=== PATIENT | male | born 1950 | race Caucasian/White ===

== ENCOUNTER 2016-10-16 12:43 | Inpatient (IN) | payer MEDICARE, OTHER ==
[2016-10-16] MEDS ORDERED: Aspirin Low Dose CHEW TAB* 81 MG PO ONE (13:05)
[2016-10-16] MEDS ORDERED: Albuterol/Ipratropium NEB.SOL* Albuterol 2.5 MG/Ipratropium 0.5 MG 3 ML INH ONE ×2 (13:07→14:31)
[2016-10-16 13:33] LABS: Hematocrit 50 % (42-52); Hemoglobin 16.6 g/dl (14.0-18.0); Mean Corpuscular HGB Conc 33 g/dl (31-36); Mean Corpuscular Hemoglobin 29 pg (27-31); Mean Corpuscular Volume 87 fL (80-94); Mean Platelet Volume 9 um3 (7.4-10.4); Red Blood Count 5.75 10^6/ul (4.0-5.4); Red Cell Distribution Width 14 % (10.5-15); White Blood Count 9.9 10^3/ul (3.5-10.8)
[2016-10-16 13:36] LABS: Add Diff/Slide Review? Slide Review Added; Comments Flag Yes
[2016-10-16 13:49] LABS: Albumin 4.4 g/dL (3.2-5.2); BUN/Creatinine Ratio 22.8 (8-20); Calcium 9.3 mg/dL (8.6-10.3); EGFR African American 105.5 (>60); EGFR Non-African American 82.1 (>60); Globulin 2.7 g/dL (2-4); Potassium 3.8 mmol/L (3.5-5.0); Total Bilirubin 0.5 mg/dL (0.2-1.0); Total Protein 7.1 g/dL (6.4-8.9)
--- NOTE | 2016-10-16 14:05 | RAD ---
INDICATION: Cough and shortness of breath. COMPARISON: There are no prior studies available for comparison. TECHNIQUE: Dual-energy PA and lateral views of the chest were obtained. FINDINGS: The heart is within normal limits in size. Mediastinal and hilar contours appear within normal limits. The lungs are clear. No pleural effusion is present. IMPRESSION: NO EVIDENCE FOR ACTIVE CARDIOPULMONARY DISEASE.
[2016-10-16] MEDS ORDERED: NS 0.9% 1000 ML* 1,000 ML IV ONE (14:30)
[2016-10-16] MEDS ORDERED: methylPREDNISolone 125 MG* 2 ML VIAL IV ONE (14:30)
[2016-10-16] MEDS ORDERED: Azithromycin IV(*) 500 MG in NS 0.9% 250 ML* 250 ML IVPB ONE (14:32)
[2016-10-16] MEDS ORDERED: cefTRIAXone(*) 1 GM in NS 0.9% 50 ML* 50 ML IVPB ONE (14:32)
--- NOTE | 2016-10-16 17:11 | ED ---
Amarilys Villanueva Alok, scribed for Alexandra Santana MD on 10/16/16 at 1320 . Shortness of Breath - HPI Summary HPI Summary: 66M presents to the ED with dypnea and SOB on exertion for the past few months and worsening for the past few weeks. Pt states his dyspnea and SOB have been slightly improved today compared to previous days. Pt also notes occasional chest pressure worsened by deep breaths as well as a productive cough with yellow sputum. Pt states his SOB is alleviated somewhat by sputum expulsion. Pt also notes slight abd tightness. Pt denies wheezing. Pt denies home O2 use. Pt is a former tobacco smoker 40 years ago at 1.5-2 ppd. Pt is a daily drinker though has not had ETOH for the past few months. Pt has no PCP and has not seen a doctor for the last 40 years. - History of Current Complaint Chief Complaint: EDShortnessOfBreath Time Seen by Provider: 10/16/16 12:52 Hx Obtained From: Patient Onset/Duration: Lasting Weeks, Still Present, Worse Since - last few weeks Timing: Constant Current Severity: Moderate Dyspnea At: Exertion Aggrevating Factors: Deep Breaths Associated Signs & Symptoms: Cough (Productive), Chest Pain Unrelated to Cough - Allergy/Home Medications Allergies/Adverse Reactions: Allergies Allergy/AdvReac Type Severity Reaction Status Date / Time No Known Allergies Allergy Verified 10/16/16 13:04 PMH/Surg Hx/FS Hx/Imm Hx Infectious Disease History: No Infectious Disease History: Denies: Traveled Outside the [place] in Last 30 Days - Family History Known Family History: Positive: Cardiac Disease, Other - Stroke - Social History Occupation: Employed Full-time Lives: Alone Alcohol Use: Daily Hx Substance Use: No Hx Tobacco Use: Yes Smoking Status (MU): Former Smoker Type: Cigarettes Have You Smoked in the Last Year: No Review of Systems Negative: Fever Positive: Chest Pain - "pressure" Positive: Shortness Of Breath, Cough. Negative: Other - Wheezing Positive: Abdominal Pain - "tightness" All Other Systems Reviewed And Are Negative: Yes Physical Exam Triage Information Reviewed: Yes Vital Signs On Initial Exam: Initial Vitals Temp Pulse Resp BP Pulse Ox 97.9 F 106 20 185/106 97 10/16/16 12:46 10/16/16 12:46 10/16/16 12:46 10/16/16 12:46 10/16/16 12:46 Vital Signs Reviewed: Yes Appearance: Positive: No Pain Distress, Cachectic Skin: Positive: Warm, Skin Color Reflects Adequate Perfusion, Dry Eyes: Positive: EOMI, RELL ENT: Positive: Pharynx normal, TMs normal Neck: Positive: Supple, Nontender Respiratory/Lung Sounds: Positive: Decreased Breath Sounds, Other - Lungs Clear. Tachypnic Cardiovascular: Positive: Tachycardia Abdomen Description: Positive: Nontender, Soft, Other: - No rebound. Negative: Distended, Guarding Bowel Sounds: Positive: Present Musculoskeletal: Positive: Strength/ROM Intact, Other - Pt able to move all four extremities. Negative: Edema Left, Edema Right Neurological: Positive: Sensory/Motor Intact, Alert, Oriented to Person Place, Time, CN Intact II-III Psychiatric: Positive: Affect/Mood Appropriate Diagnostics - Vital Signs Vital Signs Temp Pulse Resp BP Pulse Ox 10/16/16 12:46 97.9 F 106 20 185/106 97 - Laboratory Lab Results: Lab Results 10/16/16 10/16/16 10/16/16 Range/Units 13:30 13:30 13:30 WBC 9.9 (3.5-10.8) 10^3/ul RBC 5.75 H (4.0-5.4) 10^6/ul Hgb 16.6 (14.0-18.0) g/dl Hct 50 (42-52) % MCV 87 (80-94) fL MCH 29 (27-31) pg MCHC 33 (31-36) g/dl RDW 14 (10.5-15) % Plt Count 383 (150-450) 10^3/ul MPV 9 (7.4-10.4) um3 Neut % (Auto) 76.6 (38-83) % Lymph % (Auto) 13.1 L (25-47) % Roane % (Auto) 8.8 (1-9) % Eos % (Auto) 1.1 (0-6) % Baso % (Auto) 0.4 (0-2) % Absolute Neuts (auto) 7.6 (1.5-7.7) 10^3/ul Absolute Lymphs (auto) 1.3 (1.0-4.8) 10^3/ul Absolute Monos (auto) 0.9 H (0-0.8) 10^3/ul Absolute Eos (auto) 0.1 (0-0.6) 10^3/ul Absolute Basos (auto) 0 (0-0.2) 10^3/ul Absolute Nucleated RBC 0.01 10^3/ul Nucleated RBC % 0.1 D-Dimer, Quantitative < 200 (Less Than 230) ng/mL Sodium 139 (133-145) mmol/L Potassium 3.8 (3.5-5.0) mmol/L Chloride 102 (101-111) mmol/L Carbon Dioxide 30 (22-32) mmol/L Anion Gap 7 (2-11) mmol/L BUN 21 (6-24) mg/dL Creatinine 0.92 (0.67-1.17) mg/dL Est GFR ( Amer) 105.5 (>60) Est GFR (Non-Af Amer) 82.1 (>60) BUN/Creatinine Ratio 22.8 H (8-20) Glucose 114 H (70-100) mg/dL Lactic Acid (0.5-2.0) mmol/L Calcium 9.3 (8.6-10.3) mg/dL Total Bilirubin 0.50 (0.2-1.0) mg/dL AST 14 (13-39) U/L ALT 10 (7-52) U/L Alkaline Phosphatase 66 (34-104) U/L Troponin I 0.00 (<0.04) ng/mL B-Natriuretic Peptide ( - 100) pg/mL Total Protein 7.1 (6.4-8.9) g/dL Albumin 4.4 (3.2-5.2) g/dL Globulin 2.7 (2-4) g/dL Albumin/Globulin Ratio 1.6 (1-3) 10/16/16 10/16/16 10/16/16 Range/Units 13:30 13:30 16:34 WBC (3.5-10.8) 10^3/ul RBC (4.0-5.4) 10^6/ul Hgb (14.0-18.0) g/dl Hct (42-52) % MCV (80-94) fL MCH (27-31) pg MCHC (31-36) g/dl RDW (10.5-15) % Plt Count (150-450) 10^3/ul MPV (7.4-10.4) um3 Neut % (Auto) (38-83) % Lymph % (Auto) (25-47) % Roane % (Auto) (1-9) % Eos % (Auto) (0-6) % Baso % (Auto) (0-2) % Absolute Neuts (auto) (1.5-7.7) 10^3/ul Absolute Lymphs (auto) (1.0-4.8) 10^3/ul Absolute Monos (auto) (0-0.8) 10^3/ul Absolute Eos (auto) (0-0.6) 10^3/ul Absolute Basos (auto) (0-0.2) 10^3/ul Absolute Nucleated RBC 10^3/ul Nucleated RBC % D-Dimer, Quantitative (Less Than 230) ng/mL Sodium (133-145) mmol/L Potassium (3.5-5.0) mmol/L Chloride (101-111) mmol/L Carbon Dioxide (22-32) mmol/L Anion Gap (2-11) mmol/L BUN (6-24) mg/dL Creatinine (0.67-1.17) mg/dL Est GFR ( Amer) (>60) Est GFR (Non-Af Amer) (>60) BUN/Creatinine Ratio (8-20) Glucose (70-100) mg/dL Lactic Acid 1.3 (0.5-2.0) mmol/L Calcium (8.6-10.3) mg/dL Total Bilirubin (0.2-1.0) mg/dL AST (13-39) U/L ALT (7-52) U/L Alkaline Phosphatase (34-104) U/L Troponin I 0.00 (<0.04) ng/mL B-Natriuretic Peptide 16 ( - 100) pg/mL Total Protein (6.4-8.9) g/dL Albumin (3.2-5.2) g/dL Globulin (2-4) g/dL Albumin/Globulin Ratio (1-3) Result Diagrams: 10/16/16 13:30 10/16/16 13:30 Lab Statement: Any lab studies that have been ordered have been reviewed, and results considered in the medical decision making process. - Radiology CXR Xray Interpretation: Positive (See Comments) - IMPRESSION: NO EVIDENCE FOR ACTIVE CARDIOPULMONARY DISEASE. Radiology Interpretation Completed By: Radiologist - EKG 1308 Cardiac Rate: Tachycardia - 105 bpm EKG Rhythm: Sinus Tachycardia Re-Evaluation - Re-Evaluation First Eval Re-Evaluation Time: 14:29 Change: Improved Comment: Respiratory stress gone, speaking in full sentences. Still tachypnic and tachycardic Second Eval Re-Evaluation Time: 16:44 Change: Worse Comment: ambulated pt, respiratory distress returning, will call hospitalist for admit. Course/Dx - Course Course Of Treatment: 66 yo male who hasn't seen an md in 40 yrs with long tob hx quit 4 yrs ago along with what sounds like heavy drinking in his youth, followed by moderate drinking in his later years, with no alcohol in 8 months. He reports several months of increased sob worse over the last few days, labs and cxr and ekg essentially neg, he was much better after 2 nebs and steroids and abx, but desaturated to 79% with a hr of 125 after ambulation. The case has been discussed with Dr. Kemp and he is ready for admission - Diagnoses Provider Diagnoses: COPD exacerbation - Physician Notifications Discussed Care of Patient With: Osei Busby - Will admit pt Time Discussed With Above Provider: 16:43 Discharge - Discharge Plan Condition: Stable Disposition: ADMITTED TO [facility] Prescriptions: Albuterol HFA INHALER* [Ventolin HFA Inhaler*] 1 puff INH Q4H PRN #1 mdi PRN Reason: Wheezing Azithromyxin ZUHAIR (NF) [Z-Zuhair (Zithromax) 250 mg tabs #6] 2 tab PO .TODAY, THEN 1 DAILY #6 tab predniSONE TAB* [Deltasone TAB*] 50 mg PO Q6HR #4 tab Referrals: Non Staff,Doctor [Primary Care Provider] - The documentation as recorded by the Amarilys sarah Alok accurately reflects the service I personally performed and the decisions made by me, Alexandra Santana MD.
[2016-10-16] MEDS ORDERED: Albuterol 2.5 MG/3 ML NEB.SOL* (0.083%) INH PRN (17:19)
[2016-10-16] MEDS ORDERED: Acetaminophen TAB* 325 MG PO PRN (17:19)
[2016-10-16 18:19] LABS: TSH (Thyroid Stimulating Horm) 2.85 mcIU/mL (0.34-5.60)
[2016-10-16] MEDS: Albuterol/Ipratropium NEB.SOL* Albuterol 2.5 MG/Ipratropium 0.5 MG 3 ML INH SCH (20:14)
--- NOTE | 2016-10-16 22:26 | HP ---
HISTORY AND PHYSICAL: DATE OF ADMISSION: 10/16/16 PRIMARY CARE PHYSICIAN: The patient has no PCP. CHIEF COMPLAINT: Shortness of breath. HISTORY OF PRESENT ILLNESS: Mr. Ceja is a 66-year-old man with no diagnosed past medical history, but no contact with doctor for 40 plus years, who presented to the hospital with worsening shortness of breath. The patient states he has had shortness of breath for some years now, although feels that since the winter, symptoms have become worse and particularly worse over the past few weeks. He notes this shortness of breath is mostly associated with exertion. He states that in the winter he was able to walk around the supermarket but now has difficulty to even get across the parking lot without feeling short of breath or needing to stop for rest. The patient was a former heavy smoker, quit 4 years ago after a 60 to 80 pack year history. He reports a chronic productive cough that produces yellow sputum, feels like it may be slightly increased lately but never had any blood in the sputum. He does report orthopnea and has worsening of his symptoms at night with the need to prop his head up with a number of pillows. He also reports occasional chest pain which he states he notices mostly while lying down in bed. He states it will maybe start in the left side of the chest and radiate around to the back. He does not feel that this is worsened by exertion and in fact thinks that it may improve with exertion. He states he had not much of an appetite lately and has had some early satiety. He reports occasional chills, no nausea, vomiting, no lower extremity edema. No abdominal pain. He has had some constipation that is resolved recently. Denies any diarrhea. He was scheduled to see a PCP , but could not get an appointment until November and at the urging of his friends who were present at the bedside, came to the hospital for further evaluation. PAST MEDICAL HISTORY: None. PAST SURGICAL HISTORY: Hernia repair when he was a child. HOME MEDICATIONS: None. ALLERGIES: The patient reports no known drug allergies. FAMILY HISTORY: Significant for his father with CHF, diabetes, and CVA who at 80. Mother with CHF and COPD. A sister who at 48 of non-Hodgkin' s lymphoma, another sister who is still alive with hypertension. SOCIAL HISTORY: Patient reports smoking 1.5-2 PPD x40 years, quit 4 years ago. Used to drink heavily, reports in the past few years he has only had about 1 glass of wine a day, none in the past months. No illicit drug use. REVIEW OF SYSTEMS: A 12-point review of systems is negative except for that as noted in the HPI. PHYSICAL EXAMINATION GENERAL: The patient is a middle-aged slightly disheveled man lying in bed in no apparent distress. VITAL SIGNS: On admission, temperature 97.9, heart rate 106, respiratory rate of 20, O2 saturation 97% on room air. Blood pressure 185/106, which has since normalized to 130/80. HEENT: Head normocephalic, atraumatic. Eyes: Pupils equal, round and reactive to light and accommodation. Anicteric sclerae. ENT: Moist mucous membranes. No cervical adenopathy. LUNGS: With diminished and tight breath sounds throughout. Occasional end expiratory wheezing in the lower lobes. Poor air movement. CARDIOVASCULAR: Tachycardia. No murmurs, gallops or rubs. ABDOMEN: Soft, nontender, nondistended. Bowel sounds positive. EXTREMITIES: No cyanosis, clubbing, or edema. NEUROLOGIC: The patient is alert and oriented x3. No focal neurological deficits. SKIN: Warm, dry, and well perfused. LAB DATA/DIAGNOSTIC STUDIES: White blood cell count of 9.9, hematocrit of 50, platelets of 383. D-dimer less than 200. Sodium 139, potassium 3.8, chloride of 102, carbon dioxide of 30, BUN of 21, creatinine 0.92, glucose of 114. Lactic acid of 1.3. LFTs within normal limits. Troponin is 0.00. B- natriuretic peptide of 16. EKG personally reviewed shows sinus tachycardia with Q-waves in V1 and V2. Chest x-ray personally reviewed shows no evidence for acute cardiopulmonary disease. ASSESSMENT AND PLAN: Worsening shortness of breath particularly with exertion in a 66-year-old man with history of tobacco abuse and no formal medical contact in 40 years. 1. Dyspnea on exertion. Overall, the patient's symptoms seem to be more consistent with pulmonary etiology like chronic obstructive pulmonary disease. He sounds very tight on exam and reported some improvement in his symptoms after nebs and steroids. We will continue on round the clock DuoNeb and p.r.n. albuterol, and we will continue the patient on oral prednisone. He does report some orthopnea, which raises some concern for a possible cardiac etiology. He does have what appears to be Q-waves on his EKG in V1 and V2. He has had 1 negative troponin. We will continue to trend these and monitor the patient on telemetry. He is fairly tachycardic. I am not sure if this was from his hypoxia and ambulation along with the steroids and albuterol or for a primary cardiac reason. I will order an echocardiogram and could also consider a stress test; however, at this time, I think improving the patient's breathing is probably the most primary concern. Note there is no clear evidence of ischemia on the workup so far. Perhaps, the stress test could be delayed to a further date. 2. DVT prophylaxis. The patient is low risk, ambulate. 3. Code status. The patient is a full code. TIME SPENT: Total time spent on this admission, 45 minutes, with over half the time spent [id number] with the patient in counseling and coordinating care. [id number]/[facility] #: [id number] MTDD
[2016-10-17] MEDS: Albuterol/Ipratropium NEB.SOL* Albuterol 2.5 MG/Ipratropium 0.5 MG 3 ML INH SCH ×4 (00:59→21:29)
[2016-10-17] MEDS ORDERED: Pneumococcal Vac Polyvalent* 0.5 ML VIAL IM ONE (09:00)
[2016-10-17] MEDS: predniSONE TAB* 20 MG PO SCH (09:00)
--- NOTE | 2016-10-17 13:02 | PN ---
Subjective Date of Service: 10/17/16 Interval History: Patient seen this morning. Feels breathing may be slightly better today, has been ambulating around the unit. Says he did have some chest pain when he woke up this morning which has been ongoing for him, he wonders if it is MSK pain, it was less intense today and resolved once he began to move around. O2 sats dropped while ambulating this AM on RA. Family History: Unchanged from Admission Social History: Unchanged from Admission Past Medical History: Unchanged from Admission Objective Active Medications: Acetaminophen (Tylenol Tab*) 650 mg PO Q4H PRN PRN Reason: FEVER/PAIN Albuterol (Ventolin 2.5 Mg/3 Ml Neb.Nicol*) 2.5 mg INH [id number] AWAKE PRN PRN Reason: sob/wheezing Albuterol/Ipratropium (Duoneb (Albuterol 2.5 Mg/Ipratropium 0.5 Mg)) 1 neb INH [id number] AWAKE [facility] Last Admin: 10/17/16 07:46 Dose: 1 neb Prednisone (Deltasone Tab*) 40 mg PO DAILY WITH MEAL [facility] Last Admin: 10/17/16 09:00 Dose: 40 mg Vital Signs 10/16/16 10/16/16 10/16/16 17:00 17:30 17:31 Temperature Pulse Rate 120 113 111 Respiratory 18 20 19 Rate Blood Pressure 158/99 168/138 (mmHg) O2 Sat by Pulse 99 98 98 Oximetry 10/17/16 10/17/16 08:00 08:07 Temperature 97.4 F Pulse Rate 81 Respiratory 16 18 Rate Blood Pressure 154/72 (mmHg) O2 Sat by Pulse 91 Oximetry Oxygen Devices in Use Now: None Appearance: Middle-aged, slightly disheveled, M, laying in bed in NAD Eyes: No Scleral Icterus Ears/Nose/Mouth/Throat: Mucous Membranes Moist Neck: NL Appearance and Movements; NL JVP Respiratory: Symmetrical Chest Expansion and Respiratory Effort, - - Moderate air movement (seems better than yesterday), slight end-expiratory wheezing in bases Cardiovascular: NL Sounds; No Murmurs; No JVD, RRR Abdominal: NL Sounds; No Tenderness; No Distention Lymphatic: No Cervical Adenopathy Extremities: No Edema Skin: No Rash or Ulcers Neurological: Alert and Oriented x 3 Result Diagrams: 10/16/16 13:30 10/16/16 13:30 Assess/Plan/Problems-Billing Assessment: Dyspnea on exertion in a 66 yo M with hx of tobacco abuse, little medical contact - Patient Problems (1) Dyspnea on exertion Current Visit: Yes Comment: At this point seems more of a pulmonary etiology, continue to treat as COPD exacerbation with nebs/steroids. Will order inhalers so patient can begin using them in the hospital with supervision. Will likely need O2 on discharge. Should get outpatient PFTs. Troponins remained negative and tachycardia resolved. Awaiting echo. I think we can hold on stress at this point unless echo is concerning. (2) DVT prophylaxis Current Visit: Yes Comment: Low risk, ambulate Status and Disposition: Inpatient for hypoxia, likely COPD, cardiac evaluation
[2016-10-17] MEDS ORDERED: Spiriva Inhaler DEVICE* 1 EACH DEVICE INH ONE (14:00)
[2016-10-17] MEDS: Tiotropium CAP.INH* CAP.INH/18 MCG INH SCH (17:15)
[2016-10-17] MEDS: Mometasone/Formoter 200/5 MDI INH SCH (21:33)
[2016-10-18] MEDS: Albuterol/Ipratropium NEB.SOL* Albuterol 2.5 MG/Ipratropium 0.5 MG 3 ML INH SCH ×2 (00:47→08:02)
[2016-10-18] MEDS: Mometasone/Formoter 200/5 MDI INH SCH (08:03)
[2016-10-18] MEDS: Tiotropium CAP.INH* CAP.INH/18 MCG INH SCH (08:03)
[2016-10-18] MEDS: predniSONE TAB* 20 MG PO SCH (08:58)
--- NOTE | 2016-10-18 11:08 | ECHO ---
Patient: LISET MUKHERJEE [facility] Rec#: [id number] : 1950 Date: 10/18/2016 Age: 66y Height: 170.18 cm / 67.0 in Weight: 56.7 kg / 125.0 lbs Sex: M BSA: 1.66 Room#: 440 Admit Date#: 10/16/2016 Type: Inpatient Referring: DARRION PAPPAS MD Reading: Chayo Faust MD Winter [employer] Manager: Klaudia IsabelRDCS,RDMS Transthoracic Echocardiogram Indication: SOB BP: 123/88 HR: 99 Rhythm: NSR Findings History: Smoker, ETOH, dyspnea Technical Comments: The study quality is fair. Completed 1035 Left Ventricle: The left ventricular chamber size is decreased. Mild concentric left ventricular hypertrophy is observed. The estimated ejection fraction is 55-60%. Abnormal left ventricular diastolic filling is observed, consistent with impaired relaxation. Left Atrium: The left atrial chamber size is normal. Right Ventricle: The right ventricular chamber size and systolic function are within normal limits. Right Atrium: The right atrial cavity size is normal. Aortic Valve: The aortic valve is trileaflet. The aortic valve leaflets are mildly thickened. There is moderate thickening of the non coronary cusp. There is a trace of aortic regurgitation. There is no evidence of aortic stenosis. Mitral Valve: The mitral valve leaflets are mildly thickened. There is a trace of mitral regurgitation. There is no evidence of mitral stenosis. Tricuspid Valve: The tricuspid valve leaflets are normal. There is trace tricuspid regurgitation. There is evidence of mild pulmonary hypertension. Pulmonic Valve: The pulmonic valve structure is not well visualized. There is a trace pulmonic regurgitation. Pericardium: There is no significant pericardial effusion. Aorta: The aortic root appears normal. The aortic arch is not well visualized. Pulmonary Artery: The main pulmonary artery is not well visualized. Venous: The inferior vena cava appears normal. There is a greater than 50% respiratory change in the inferior vena cava dimension. Summary: There was not any prior study for comparison. Conclusions The left ventricular chamber size is decreased. Mild concentric left ventricular hypertrophy is observed. The estimated ejection fraction is 55-60% Abnormal left ventricular diastolic filling is observed, consistent with impaired relaxation. There is a trace of aortic regurgitation. There is a trace of mitral regurgitation. There is trace tricuspid regurgitation. There is a trace pulmonic regurgitation. Measurements Name Value Normal Range RVIDd (AP) 2D 2.7 cm (0.9 - 2.6) RAd ISD 4CH 3.8 cm (3.4 - 4.9) RA (A4C)W 3.5 cm (2.9 - 4.6) IVSd (2D) 1.1 cm (0.6 - 1) LVPWd (2D) 1.2 cm (0.6 - 1) LVIDd (2D) 3 cm (3.6 - 5.4) LVIDs (2D) 2.5 cm - LV FS (2D) 16 % (25 - 45) Aortic Annulus 2 cm (1.4 - 2.6) Ao root diameter (2D) 3 cm (2.1 - 3.5) Ascending Ao 2.8 cm (2.1 - 3.4) LA dimension (AP) 2D 2.8 cm (2.3 - 3.8) LAd ISD 4CH 3.5 cm (2.9 - 5.3) LA ISD 4CH W 3.2 cm (2.5 - 4.5) Name Value Normal Range LA ESV SP 4CH (A/L) 17.44 ml - LA ESV SP 2CH (A/L) 26.54 ml - LA ESV BP (A/L) 26.06 ml - LA ESV BP (A/L) index 16 ml/m2 - LA ESV SP 4CH (MOD) 15.33 ml - LA ESV SP 2CH (MOD) 23.64 ml - Name Value Normal Range MV E-wave Vmax 0.6 m/sec - MV deceleration time 156 msec - MV A-wave Vmax 0.8 m/sec - MV E:A ratio 0.8 ratio - P. vein S-wave Vmax 0.7 m/sec - P. vein D-wave Vmax 0.4 m/sec - P. vein S:D Vmax ratio 1.88 ratio - P. vein A-wave duration 100.3 msec - LV septal e' Vmax 0.06 m/sec - LV lateral e' Vmax 0.1 m/sec - LV E:e' septal ratio 10 ratio - LV E:e' lateral ratio 6 ratio - Name Value Normal Range AV Vmax 1.3 m/sec - AV VTI 19.6 cm - AV peak gradient 7 mmHg - AV mean gradient 3.4 mmHg - LVOT Vmax 1 m/sec - LVOT VTI 18.3 cm - LVOT peak gradient 4 mmHg - LVOT mean gradient 2.1 mmHg - Name Value Normal Range TR Vmax 2.9 m/sec - TR peak gradient 34 mmHg - RAP 3 mmHg - RVSP 37 mmHg - IVC diameter 1.8 cm - Name Value Normal Range PV Vmax 0.8 m/sec - PV peak gradient 2.4 mmHg -
[2016-10-18 12:21] VITALS: BP 150/91
--- NOTE | 2016-10-18 12:49 | DCNOTE ---
Patient seen this morning. Reports he continues to feel some improvement in his breathing. Reports noticeable difference when he ambulates with O2. Was documented as having hypoxia with ambualting. On exam, RRR, s1 and s2 present, no m/g/r, lungs still somewhat tight with moderate air movement, no wheezing noted, no LE edema Echo shows good EF with no major abnormalities. Will plan to discharge the patient home with Spiriva, Symbicort and prn albuterol along with a few more days of steroids. Patient will be sent home with O2 for activity. Will need PCP follow-up and consideration of outpatient stress test once breathing issues have stabilized.
--- NOTE | 2016-10-19 04:43 | DS ---
DISCHARGE SUMMARY: DATE OF ADMISSION: 10/16/16 DATE OF DISCHARGE: 10/18/16 PRINCIPAL DISCHARGE DIAGNOSES: 1. Likely underlying chronic obstructive pulmonary disease with exacerbation. 2. Dyspnea on exertion. 3. Hypoxia with exertion. DISCHARGE MEDICATION REGIMEN: 1. Spiriva 1 capsule inhaled daily. 2. Symbicort 2 puffs inhaled 2 times daily. 3. Albuterol inhaler 1 puff inhaled every 4 hours as needed for shortness of breath or wheezing. 4. Prednisone 40 mg by mouth daily x2 days. STUDIES DONE DURING HOSPITALIZATION: 1. Chest x-ray. Impression: No evidence for active cardiopulmonary disease. Transthoracic echocardiogram. Conclusion: Left ventricular chamber size is decreased. Mild concentric LVH. EF of 55% to 60%. Abnormal left ventricular diastolic filling is observed consistent with impaired relaxation. There is trace aortic regurgitation, trace mitral regurgitation, trace tricuspid regurgitation, and trace pulmonic regurgitation. HISTORY OF PRESENT ILLNESS AND HOSPITAL SUMMARY: Please see my full history and physical for full details. Briefly, Mr. Ceja is a 66-year-old man with a history of tobacco abuse and no medical contact for over 40 years who presents to the hospital with long-term shortness of breath that seems to have progressed over the past few weeks. He reports occasional chest pain as well although it seems like this is mostly when he is lying down. It seems to resolve with exertion. The patient has a heavy smoking history, but quit 4 years ago. In the emergency department, the patient had an unremarkable chest x -ray and negative D-dimer and a normal B- natriuretic peptide. His troponins were trended, which remained negative. He had an EKG, which did show some Q- waves. However, he was monitored on telemetry with no events. He underwent an echocardiogram as above that showed relatively preserved EF, maybe some signs of diastolic dysfunction. Overall, it was felt that the patient's symptoms were likely due to COPD that was undiagnosed. The patient was started on nebulizers and steroids while in the hospital and was transitioned to inhalers on discharge. He will get a few additional days of prednisone. The patient needs PCP followup and would benefit from outpatient PFTs as well as likely a cardiac stress test once his breathing issues have resolved. The patient was encouraged to keep his upcoming PCP appointment and our office will try to see if we can get him in sooner than his scheduled appointment in November. TIME SPENT: Total time spent on this discharge, 35 minutes. This is a summary of the hospitalization, please see the full medical record for further details. [id number]/[facility] #: [id number] MTDD
== END 2016-10-18 14:10 | disposition home or self-care (01) | DRG 192 ==
LOC: ED 12:43 → MEDTELE 16:54
PROVIDERS: ADMIT Hospitalist; ATTEND Hospitalist
DX: J44.1 Chronic obstructive pulmonary disease with (acute) exacerbation (principal); R06.00 Dyspnea, unspecified; R09.02 Hypoxemia; Z87.891 Personal history of nicotine dependence; Z83.3 Family history of diabetes mellitus; Z82.3 Family history of stroke; Z82.5 Family history of asthma and other chronic lower respiratory diseases; Z80.7 Family history of other malignant neoplasms of lymphoid, hematopoietic and related tissues; Z82.49 Family history of ischemic heart disease and other diseases of the circulatory system
CPT/HCPCS: 36415; 71020; 80053; 83605; 83880; 84443; 84484; 85025; 85379; 87040; 90732; 93005; 93306; 94640; 94760; A9270-GY; J0456; J0696; J2930; J7512

== ENCOUNTER 2016-11-19 17:55 | Inpatient (IN) | payer MEDICARE, OTHER ==
[2016-11-19] MEDS ORDERED: NS 0.9% 1000 ML* 1,000 ML IV ONE (19:57)
[2016-11-19] MEDS ORDERED: Morphine INJ* 2 MG/ML 1 ML SYRINGE IV ONE (19:57)
[2016-11-19] MEDS ORDERED: methylPREDNISolone 125 MG* 2 ML VIAL IV ONE (19:57)
[2016-11-19] MEDS ORDERED: Albuterol/Ipratropium NEB.SOL* Albuterol 2.5 MG/Ipratropium 0.5 MG 3 ML INH ONE ×2 (19:57→21:37)
[2016-11-19 20:39] LABS: Hematocrit 47 % (42-52); Hemoglobin 15.1 g/dl (14.0-18.0); Mean Corpuscular HGB Conc 32 g/dl (31-36); Mean Corpuscular Hemoglobin 29 pg (27-31); Mean Corpuscular Volume 90 fL (80-94); Mean Platelet Volume 8 um3 (7.4-10.4); Red Blood Count 5.21 10^6/ul (4.0-5.4); Red Cell Distribution Width 14 % (10.5-15); White Blood Count 14.2 10^3/ul (3.5-10.8)
[2016-11-19 20:54] LABS: Albumin 4.3 g/dL (3.2-5.2); BUN/Creatinine Ratio 18.9 (8-20); Calcium 9.3 mg/dL (8.6-10.3); EGFR African American 101.7 (>60); EGFR Non-African American 79.1 (>60); Globulin 2.4 g/dL (2-4); Potassium 4.1 mmol/L (3.5-5.0); Total Bilirubin 0.7 mg/dL (0.2-1.0); Total Protein 6.7 g/dL (6.4-8.9)
--- NOTE | 2016-11-19 21:23 | ED ---
Fanny Villanueva Rebecca, scribed for Gael Garcia MD on 11/19/16 at 1959 . Respiratory - HPI Summary HPI Summary: Pt is a 66 y/o M who presents to ED c/o acute on chronic SOB. SOB is characterized as dyspnea at rest and worsened yesterday. Sx aggravated and alleviated by nothing. Additionally c/o productive cough with small amounts of sputum, chest "spasms" and lumbar back pain. Spasms and back pain have been present for the last month with treatment of Tylenol without much relief. Denies fever. Dx of COPD 1 month ago. Uses 3L O2 per Os while being active, no O2 while at rest. - History of Current Complaint Chief Complaint: EDRespiratoryDistress Stated Complaint: DIFFICULTY BREATHING/CHEST PAIN Time Seen by Provider: 11/19/16 19:50 Hx Obtained From: Patient Onset/Duration: Still Present, Worse Since - 2 days ago Timing: Constant Pain Intensity: 6 Sputum Amount: Small Aggravating Factor(s): Nothing Alleviating Factor(s): Nothing Associated Signs and Symptoms: SOB, Chest Pain - "spasms" - Allergy/Home Medications Allergies/Adverse Reactions: Allergies Allergy/AdvReac Type Severity Reaction Status Date / Time No Known Allergies Allergy Verified 10/16/16 13:04 Home Medications: Home Medications Budesonide/Formote 160/4.5(NF) [Symbicort 160/4.5 (NF)] 2 puff INH BID 11/20/16 [History Confirmed 11/20/16] PMH/Surg Hx/FS Hx/Imm Hx Respiratory History: Reports: Hx Chronic Obstructive Pulmonary Disease (COPD) Sensory History: Reports: Hx Contacts or Glasses Denies: Hx Hearing Aid Opthamlomology History: Reports: Hx Contacts or Glasses - Surgical History Surgery Procedure, Year, and Place: inguinal hernia as a kid Infectious Disease History: No Infectious Disease History: Denies: Traveled Outside the [place] in Last 30 Days - Family History Known Family History: Positive: Cardiac Disease, Other - Stroke - Social History Alcohol Use: Weekly Alcohol Amount: stopped recently because he is not eating well Hx Substance Use: No Substance Use Type: Reports: None Hx Tobacco Use: Yes Smoking Status (MU): Former Smoker Type: Cigarettes Have You Smoked in the Last Year: No Review of Systems Negative: Fever Positive: Chest Pain - chest "spasms" Positive: Shortness Of Breath, Cough - productive Positive: Arthralgia - Lumbar back pain All Other Systems Reviewed And Are Negative: Yes Physical Exam Triage Information Reviewed: Yes Vital Signs On Initial Exam: Initial Vitals Temp Pulse Resp BP Pulse Ox 98.4 F 119 30 154/95 93 11/19/16 18:03 11/19/16 18:03 11/19/16 18:03 11/19/16 18:03 11/19/16 18:03 Vital Signs Reviewed: Yes Appearance: Positive: No Pain Distress - moderate sob, Thin, Cachectic Skin: Positive: Warm Head/Face: Positive: Normal Head/Face Inspection Eyes: Positive: RELL ENT: Positive: Hearing grossly normal Neck: Positive: Supple Respiratory/Lung Sounds: Positive: Decreased Breath Sounds, Wheezes - diffuse bilat exp whhezes Cardiovascular: Positive: Tachycardia Abdomen Description: Positive: Nontender, Soft Bowel Sounds: Positive: Present Musculoskeletal: Positive: Strength/ROM Intact Neurological: Positive: Alert, Oriented to Person Place, Time Psychiatric: Positive: Affect/Mood Appropriate Diagnostics - Vital Signs Vital Signs Temp Pulse Resp BP Pulse Ox 11/19/16 18:47 98.0 F 109 22 150/97 100 11/19/16 18:03 98.4 F 119 30 154/95 93 - Laboratory Lab Results: Lab Results 11/19/16 11/19/16 11/19/16 Range/Units 20:29 20:29 20:29 WBC 14.2 H (3.5-10.8) 10^3/ul RBC 5.21 (4.0-5.4) 10^6/ul Hgb 15.1 (14.0-18.0) g/dl Hct 47 (42-52) % MCV 90 (80-94) fL MCH 29 (27-31) pg MCHC 32 (31-36) g/dl RDW 14 (10.5-15) % Plt Count 447 (150-450) 10^3/ul MPV 8 (7.4-10.4) um3 Neut % (Auto) 81.6 (38-83) % Lymph % (Auto) 10.2 L (25-47) % Lares % (Auto) 7.4 (1-9) % Eos % (Auto) 0.4 (0-6) % Baso % (Auto) 0.4 (0-2) % Absolute Neuts (auto) 11.6 H (1.5-7.7) 10^3/ul Absolute Lymphs (auto) 1.4 (1.0-4.8) 10^3/ul Absolute Monos (auto) 1.0 H (0-0.8) 10^3/ul Absolute Eos (auto) 0.1 (0-0.6) 10^3/ul Absolute Basos (auto) 0.1 (0-0.2) 10^3/ul Absolute Nucleated RBC 0.01 10^3/ul Nucleated RBC % 0.1 INR (Anticoag Therapy) 0.92 (0.89-1.11) D-Dimer, Quantitative < 200 (Less Than 230) ng/mL Sodium 139 (133-145) mmol/L Potassium 4.1 (3.5-5.0) mmol/L Chloride 103 (101-111) mmol/L Carbon Dioxide 29 (22-32) mmol/L Anion Gap 7 (2-11) mmol/L BUN 18 (6-24) mg/dL Creatinine 0.95 (0.67-1.17) mg/dL Est GFR ( Amer) 101.7 (>60) Est GFR (Non-Af Amer) 79.1 (>60) BUN/Creatinine Ratio 18.9 (8-20) Glucose 104 H (70-100) mg/dL Lactic Acid (0.5-2.0) mmol/L Calcium 9.3 (8.6-10.3) mg/dL Total Bilirubin 0.70 (0.2-1.0) mg/dL AST 15 (13-39) U/L ALT 12 (7-52) U/L Alkaline Phosphatase 48 (34-104) U/L Total Protein 6.7 (6.4-8.9) g/dL Albumin 4.3 (3.2-5.2) g/dL Globulin 2.4 (2-4) g/dL Albumin/Globulin Ratio 1.8 (1-3) /10/31 Range/Units 20:29 WBC (3.5-10.8) 10^3/ul RBC (4.0-5.4) 10^6/ul Hgb (14.0-18.0) g/dl Hct (42-52) % MCV (80-94) fL MCH (27-31) pg MCHC (31-36) g/dl RDW (10.5-15) % Plt Count (150-450) 10^3/ul MPV (7.4-10.4) um3 Neut % (Auto) (38-83) % Lymph % (Auto) (25-47) % Lares % (Auto) (1-9) % Eos % (Auto) (0-6) % Baso % (Auto) (0-2) % Absolute Neuts (auto) (1.5-7.7) 10^3/ul Absolute Lymphs (auto) (1.0-4.8) 10^3/ul Absolute Monos (auto) (0-0.8) 10^3/ul Absolute Eos (auto) (0-0.6) 10^3/ul Absolute Basos (auto) (0-0.2) 10^3/ul Absolute Nucleated RBC 10^3/ul Nucleated RBC % INR (Anticoag Therapy) (0.89-1.11) D-Dimer, Quantitative (Less Than 230) ng/mL Sodium (133-145) mmol/L Potassium (3.5-5.0) mmol/L Chloride (101-111) mmol/L Carbon Dioxide (22-32) mmol/L Anion Gap (2-11) mmol/L BUN (6-24) mg/dL Creatinine (0.67-1.17) mg/dL Est GFR ( Amer) (>60) Est GFR (Non-Af Amer) (>60) BUN/Creatinine Ratio (8-20) Glucose (70-100) mg/dL Lactic Acid 0.8 (0.5-2.0) mmol/L Calcium (8.6-10.3) mg/dL Total Bilirubin (0.2-1.0) mg/dL AST (13-39) U/L ALT (7-52) U/L Alkaline Phosphatase (34-104) U/L Total Protein (6.4-8.9) g/dL Albumin (3.2-5.2) g/dL Globulin (2-4) g/dL Albumin/Globulin Ratio (1-3) Result Diagrams: 11/19/16 20:29 11/19/16 20:29 Lab Statement: Any lab studies that have been ordered have been reviewed, and results considered in the medical decision making process. - Radiology CXR Xray Interpretation: No Acute Changes - Hyperinflated lung ruiz without evidence of active cardiopulmonary disease. Radiology Interpretation Completed By: Radiologist - EKG 1815 Cardiac Rate: Tachycardia - 105 bpm EKG Rhythm: Sinus Tachycardia EKG Interpretation: No STEMI Re-Evaluation - Re-Evaluation First Eval Change: Improved - improved at rest, desats with minimal exertion, will admit , d/w hospitalist Disposition - Course Assessment/Plan: Pt is a 66 y/o M who presents to ED c/o acute on chronic SOB, worsened yesterday. Additionally c/o productive cough with small amounts of sputum, chest "spasms" and lumbar back pain. Spasms and back pain have been present for the last month with treatment of Tylenol without much relief. Denies fever. Dx of COPD 1 month ago. Uses 3L O2 per Os while being active, no O2 while at rest. CXR reveals hyperinflated lung ruiz with no active cardiopulmonary disease. Discussed care of pt with Dr. Doll who accepts pt for admission. Pt will be admitted to hospitalist services with Dx of COPD. He understands and agrees. - Diagnoses Provider Diagnoses: COPD (chronic obstructive pulmonary disease) - Physician Notifications Discussed Care Of Patient With: Fadi Doll Time Discussed With Above Provider: 22:40 Instructed by Provider To: Admit As Inpatient - Accepts pt for admission - Critical Care Time Critical Care Time: 30-74 min Discharge - Discharge Plan Condition: Fair Disposition: ADMITTED TO [facility] The documentation as recorded by the Fanny sarah Rebecca accurately reflects the service I personally performed and the decisions made by , Gael Garcia MD.
--- NOTE | 2016-11-19 21:33 | RAD ---
Indication: Shortness of breath. 2 views of the chest including dual energy PA views demonstrates hyperinflated lung ruiz. No pleural fluid, pneumonia or pneumothorax is noted. No changes noted since October 16, 2016. IMPRESSION: Hyperinflated lung ruiz without evidence of active cardiopulmonary disease.
[2016-11-19] MEDS ORDERED: Albuterol 2.5 MG/3 ML NEB.SOL* (0.083%) INH PRN (23:05)
[2016-11-19] MEDS ORDERED: Ondansetron INJ* 2 MG/ML VIAL IV PRN (23:06)
--- NOTE | 2016-11-20 00:09 | HP ---
H&P (Free Text) History and Physical: PCP: RODNEY Nino Date/Time of Evaluation: 11/19/2016 2330 CC: SOB HPI: Mr Ceja (pronounced Serb) is a 66YO male HX COPD diagnosed on recent admission to [facility] 10/16-10/18/2016 for same. He is on 3L NC oxygen with activity. Starting last evening he began to have increasing SOB which worsened throughout the day until he decided to present for evaluation. He denies chest pain, cough, congestion, palpitations, N/V, F/C, or other issues. He has been taking his meds as prescribed. PMedHx COPD 3L NC oxygen w/ activity chronic mid back and chest pain chronic L LBP Ambulatory Orders Nursing to reconcile. Albuterol HFA INHALER* [Ventolin HFA Inhaler*] 1 puff INH Q4H PRN #1 mdi Mometasone/Formoter 200/5 MDI* [Dulera 200/5 MDI*] 2 puff INH BID #1 ea Tiotropium CAP.INH* [Spiriva CAP.INH*] 1 cap INH DAILY #30 cap.inh 10/18/16 predniSONE TAB* [Deltasone TAB*] 40 mg PO DAILY WITH MEAL #4 tab 10/18/16 Allergies No Known Allergies Allergy (Verified 10/16/16 13:04) PSurgHx hernia repair SocHx: former smoker quit ~4years ago w/ >60PYHX, former heavy drinker down to 1 alcoholic drink daily, denies recreational drugs; single; FamHx: Mother: , CHF, COPD; Father: , CHF, DM2, CVA; Sister 1: passed in her 40s of non-Hodgkin's lymphoma; Sister 2: HTN ROS: as above, otherwise reviewed and all were negative Constitutional: NAD, normally developed, thin white male vitals: Vital Signs Temp 36.7 C 11/19/16 18:47 Pulse 127 11/19/16 22:00 Resp 22 11/19/16 22:00 BP 179/103 11/19/16 22:00 Pulse Ox 96 11/19/16 22:00 Intake & Output 11/18/16 11/19/16 11/19/16 23:59 11:59 23:59 Weight 52.617 kg HEENM: atraumatic; sclera/conjunctiva: non-icteric/mildly injected OU; hearing: clinically intact; oropharynx: clear, mucosa moist Neck: soft tissue: non-tender; thyroid: normal Pulmonary: diminished breath sounds B with mid- to end-expiratory wheeze and prolonged expiratory phase, poor aeration, no accessory muscle use CV: TR/RR, normal S1S2, no carotid bruit, no jugular venous distention, 2+ B DP/ PT, no edema Abdominal: soft, non-distended, non-tender, no rebound/guarding/rigidity, normoactive bowel sounds, no hepatosplenomegaly or masses, no costovertebral angle tenderness Musculoskeletal: general: grossly intact; gait: stable Integumental: normal appearance and texture of exposed skin Psychiatric orientation: AA&O to PPS affect: calm mood: cooperative eye contact: good content: reliable responses: timely insight: good Testing: Lab Results 11/19/16 11/19/16 11/19/16 Range/Units 20:29 20:29 20:29 WBC 14.2 H (3.5-10.8) 10^3/ul RBC 5.21 (4.0-5.4) 10^6/ul Hgb 15.1 (14.0-18.0) g/dl Hct 47 (42-52) % MCV 90 (80-94) fL MCH 29 (27-31) pg MCHC 32 (31-36) g/dl RDW 14 (10.5-15) % Plt Count 447 (150-450) 10^3/ul MPV 8 (7.4-10.4) um3 Neut % (Auto) 81.6 (38-83) % Lymph % (Auto) 10.2 L (25-47) % Blaine % (Auto) 7.4 (1-9) % Eos % (Auto) 0.4 (0-6) % Baso % (Auto) 0.4 (0-2) % Absolute Neuts (auto) 11.6 H (1.5-7.7) 10^3/ul Absolute Lymphs (auto) 1.4 (1.0-4.8) 10^3/ul Absolute Monos (auto) 1.0 H (0-0.8) 10^3/ul Absolute Eos (auto) 0.1 (0-0.6) 10^3/ul Absolute Basos (auto) 0.1 (0-0.2) 10^3/ul Absolute Nucleated RBC 0.01 10^3/ul Nucleated RBC % 0.1 INR (Anticoag Therapy) 0.92 (0.89-1.11) D-Dimer, Quantitative < 200 (Less Than 230) ng/mL Sodium 139 (133-145) mmol/L Potassium 4.1 (3.5-5.0) mmol/L Chloride 103 (101-111) mmol/L Carbon Dioxide 29 (22-32) mmol/L Anion Gap 7 (2-11) mmol/L BUN 18 (6-24) mg/dL Creatinine 0.95 (0.67-1.17) mg/dL Est GFR ( Amer) 101.7 (>60) Est GFR (Non-Af Amer) 79.1 (>60) BUN/Creatinine Ratio 18.9 (8-20) Glucose 104 H (70-100) mg/dL Lactic Acid (0.5-2.0) mmol/L Calcium 9.3 (8.6-10.3) mg/dL Total Bilirubin 0.70 (0.2-1.0) mg/dL AST 15 (13-39) U/L ALT 12 (7-52) U/L Alkaline Phosphatase 48 (34-104) U/L Total Protein 6.7 (6.4-8.9) g/dL Albumin 4.3 (3.2-5.2) g/dL Globulin 2.4 (2-4) g/dL Albumin/Globulin Ratio 1.8 (1-3) /10/31 Range/Units 20:29 WBC (3.5-10.8) 10^3/ul RBC (4.0-5.4) 10^6/ul Hgb (14.0-18.0) g/dl Hct (42-52) % MCV (80-94) fL MCH (27-31) pg MCHC (31-36) g/dl RDW (10.5-15) % Plt Count (150-450) 10^3/ul MPV (7.4-10.4) um3 Neut % (Auto) (38-83) % Lymph % (Auto) (25-47) % Blaine % (Auto) (1-9) % Eos % (Auto) (0-6) % Baso % (Auto) (0-2) % Absolute Neuts (auto) (1.5-7.7) 10^3/ul Absolute Lymphs (auto) (1.0-4.8) 10^3/ul Absolute Monos (auto) (0-0.8) 10^3/ul Absolute Eos (auto) (0-0.6) 10^3/ul Absolute Basos (auto) (0-0.2) 10^3/ul Absolute Nucleated RBC 10^3/ul Nucleated RBC % INR (Anticoag Therapy) (0.89-1.11) D-Dimer, Quantitative (Less Than 230) ng/mL Sodium (133-145) mmol/L Potassium (3.5-5.0) mmol/L Chloride (101-111) mmol/L Carbon Dioxide (22-32) mmol/L Anion Gap (2-11) mmol/L BUN (6-24) mg/dL Creatinine (0.67-1.17) mg/dL Est GFR ( Amer) (>60) Est GFR (Non-Af Amer) (>60) BUN/Creatinine Ratio (8-20) Glucose (70-100) mg/dL Lactic Acid 0.8 (0.5-2.0) mmol/L Calcium (8.6-10.3) mg/dL Total Bilirubin (0.2-1.0) mg/dL AST (13-39) U/L ALT (7-52) U/L Alkaline Phosphatase (34-104) U/L Total Protein (6.4-8.9) g/dL Albumin (3.2-5.2) g/dL Globulin (2-4) g/dL Albumin/Globulin Ratio (1-3) ECG, personally reviewed: sinus tachycardia rate 105, no ischemia CXR, personally reviewed: IMPRESSION: Hyperinflated lung ruiz without evidence of active cardiopulmonary disease. Impression: 66M presenting in COPD exacerbation DIAGNOSIS & PLAN Primary COPD exacerbation : albuterol nebs : mometasone/formoterol : tiotropium : IV methylprednisolone : IV levofloxacin : guaifenesin : incentive spirometry : supplemental oxygen : supportive care Secondary chronic L LBP, mid-back pain, & chest pain : pain control Admission Rational: inpatient for COPD management not anticipated to resolve adequately w/i 48h to allow for discharge DVTp: heparin SQ Code Status: out of hospital DNR/I, will have MOLST brought in tomorrow HCP:
[2016-11-20] MEDS: Albuterol 2.5 MG/3 ML NEB.SOL* (0.083%) INH SCH ×4 (00:57→19:06)
[2016-11-20] MEDS: Levofloxacin 500 MG IVPREMIX(* 500 MG/100 ML BAG IVPB SCH (02:11)
[2016-11-20] MEDS: NS 0.9% 1000 ML* 1,000 ML IV SCH ×2 (02:11→18:25)
[2016-11-20] MEDS: methylPREDNISolone SOD 40 MG* 1 ML VIAL IV SCH ×3 (04:31→20:20)
[2016-11-20] MEDS: Heparin VIAL(*) 5000 UNITS/ML VIAL (FIVE THOUSAND) SUBCUT SCH ×3 (05:27→22:23)
[2016-11-20] MEDS: Omeprazole CAP* 20 MG PO SCH (05:28)
[2016-11-20 05:48] LABS: Hematocrit 42 % (42-52); Hemoglobin 13.8 g/dl (14.0-18.0); Mean Corpuscular HGB Conc 33 g/dl (31-36); Mean Corpuscular Hemoglobin 29 pg (27-31); Mean Corpuscular Volume 90 fL (80-94); Mean Platelet Volume 8 um3 (7.4-10.4); Red Blood Count 4.68 10^6/ul (4.0-5.4); Red Cell Distribution Width 14 % (10.5-15); White Blood Count 6.9 10^3/ul (3.5-10.8)
[2016-11-20] MEDS: Mometasone/Formoter 200/5 MDI INH SCH ×2 (08:46→19:06)
[2016-11-20] MEDS: Tiotropium CAP.INH* CAP.INH/18 MCG INH SCH (08:46)
[2016-11-20] MEDS ORDERED: Spiriva Inhaler DEVICE* 1 EACH DEVICE ONE (09:00)
[2016-11-20] MEDS: guaiFENesin ER TAB 600 MG PO SCH ×2 (09:07→20:27)
[2016-11-20] MEDS: Docusate CAP* 100 MG PO SCH ×2 (09:07→20:22)
[2016-11-20] MEDS ORDERED: Iohexol 300* (CONTRAST) 10 ML SDV IV SCH (11:28)
--- NOTE | 2016-11-20 13:14 | PN ---
Subjective Date of Service: 11/20/16 Interval History: HOSPITALIST PROGRESS NOTE Patient seen and examined at bedside. He feels a little better this AM. Denies dyspnea at rest, but has not tried exertion yet. C/o back pain (upper, sometimes lower, sometimes on the sides) associated with muscle spasms started around winter time. Also thinks he has lost 10lbs over the same period of time. Family History: Unchanged from Admission Social History: Unchanged from Admission Past Medical History: Unchanged from Admission Objective Active Medications: Acetaminophen (Tylenol Tab*) 650 mg PO Q6H PRN PRN Reason: FEVER/PAIN Albuterol (Ventolin 2.5 Mg/3 Ml Neb.Nicol*) 2.5 mg INH Q2H PRN PRN Reason: SOB/WHEEZING Albuterol (Ventolin 2.5 Mg/3 Ml Neb.Nicol*) 2.5 mg INH [id number] AWAKE [facility] Last Admin: 11/20/16 07:17 Dose: 2.5 mg Docusate Sodium (Colace Cap*) 200 mg PO BID [facility] Last Admin: 11/20/16 09:07 Dose: 200 mg Guaifenesin (Mucinex*) 1,200 mg PO BID [facility] Last Admin: 11/20/16 09:07 Dose: 1,200 mg Heparin Sodium (Porcine) (Heparin Vial(*)) 5,000 units SUBCUT Q8HR [facility] Last Admin: 11/20/16 05:27 Dose: 5,000 units Levofloxacin/Dextrose (Levaquin 500 Mg Ivpremix(*)) 500 mg in 100 mls @ 100 mls /hr IVPB Q24H [facility] Last Admin: 11/20/16 02:11 Dose: 100 mls/hr Sodium Chloride (Ns 0.9% 1000 Ml*) 1,000 mls @ 75 mls/hr IV PER RATE [facility] Last Admin: 11/20/16 02:11 Dose: 75 mls/hr Iohexol (Omnipaque 300* (Contrast)) 71 ml IV ONCE [facility] Stop: 11/22/16 11:27 Methylprednisolone Sodium Succinate (Solu-Medrol 40 Mg) 40 mg IV Q8H [facility] Last Admin: 11/20/16 11:57 Dose: 40 mg Mometasone Furoate/Formoterol Fumar (Dulera 200/5 Mdi*) 2 puff INH BID [facility] Last Admin: 11/20/16 08:46 Dose: 2 puff Omeprazole (Prilosec Cap*) 20 mg PO DAILY@0600 [facility] Last Admin: 11/20/16 05:28 Dose: 20 mg Ondansetron HCl (Zofran Inj*) 4 mg IV Q6H PRN PRN Reason: NAUSEA Tiotropium Denio (Spiriva Cap.Inh*) 1 cap INH DAILY [facility] Last Admin: 11/20/16 08:46 Dose: 1 cap Vital Signs 11/20/16 11:54 Temperature 97.8 F Pulse Rate 107 Respiratory 16 Rate Blood Pressure 146/85 (mmHg) O2 Sat by Pulse 97 Oximetry Oxygen Devices in Use Now: Nasal Cannula - 3 liters Appearance: Pleasant thin elderly male sitting up in bed in NAD. Eyes: No Scleral Icterus Ears/Nose/Mouth/Throat: Mucous Membranes Moist Neck: Trachea Midline Respiratory: Symmetrical Chest Expansion and Respiratory Effort, - - BS+ bilaterally decreased with scattered wheezes on left base Cardiovascular: RRR - Normal S1 and S2 Abdominal: NL Sounds; No Tenderness; No Distention Extremities: No Edema Skin: No Rash or Ulcers Neurological: Alert and Oriented x 3, NL Muscle Strength and Tone, - - Back shows no visible deformities, no pain on percussion or palpation Lines/Tubes/Other Access: Clean, Dry and Intact Peripheral IV Nutrition: Taking PO's Result Diagrams: 11/20/16 05:27 11/19/16 20:29 Assess/Plan/Problems-Billing Assessment: Mr. Ceja is a 66yo M with PMH of COPD on home O2, chronic back pain, who presented to ED with c/o dyspnea, found to have COPD exacerbation. - Patient Problems (1) COPD exacerbation Comment: - Secondary to bronchitis. - Continue levofloxacin, steroids, and bronchodilators. - Continue supplemental O2. (2) Back pain Comment: - I'm concerned this may be associated with an occult malignancy. - He's an ex-smoker, describes losing 10lbs since winter, but has actually lost 9 lbs since admission last month. I think he has lost much more than 10 lbs since winter. - Will check CT C/A/P looking for possible malignancy. (3) DVT prophylaxis Comment: - SQ heparin.
--- NOTE | 2016-11-20 14:44 | RAD ---
INDICATION: Weight loss. Evaluate for malignancy COMPARISON: None TECHNIQUE: Axial source images were obtained from the thoracic inlet to the symphysis pubis following administration of oral and intravenous contrast. 71 mL Omnipaque 300 was utilized. Coronal and sagittal reconstructed images were acquired. CHEST FINDINGS: Neck/thyroid: The visualized neck to include the thyroid appear normal. Chest wall: There are no acute abnormalities of the bony thorax or chest wall. There is no supraclavicular, infraclavicular, or axillary lymphadenopathy. Lungs : There is hyperinflation with coarsening of the interstitium compatible with emphysema. The lung apices are most significantly affected. There are no endobronchial lesions. Cardiomediastinal structures: The heart is normal in size. There is no pericardial effusion. There is no evidence of aortic aneurysm or dissection. The pulmonary vessels appear normal. There is no mediastinal or hilar adenopathy. The esophagus appears normal. Pleura : There are no pleural-based masses or effusions. ABDOMINAL/PELVIC FINDINGS: Liver: The liver is normal in size. There is a 1.3 cm right hepatic cyst. There is no ductal dilatation. Gallbladder: There are no calcified gallstones. There is no evidence of wall thickening or pericholecystic fluid. Spleen: The spleen is normal in size. There are no masses. Pancreas: There is no evidence of pancreatic mass or ductal dilatation. Adrenal glands: There is no evidence of adrenal mass. Kidneys: The kidneys are normal in size and position. There are prompt nephrograms and there is prompt excretion bilaterally. There are no renal parenchymal masses. There is no evidence of nephrolithiasis. Adenopathy: There is no evidence of adenopathy by size criteria. Fluid collections: There are no free or localized fluid collections. Vessels:There are atherosclerotic changes of the aorta. There is no focal aneurysm. The IVC is unremarkable GI tract: There are no acute CT bowel findings. There is no obstruction. The stomach and small bowel appear normal. The lower GI tract is remarkable for scattered diverticula. The cecum, ileocecal valve, and terminal ileum appear normal. The appendix is visualized and appear normal. Pelvic organs: The prostate is enlarged Bladder: There are no bladder masses. Abdominal and pelvic soft tissues: The extraperitoneal abdominal and pelvic soft tissues appear normal.. Osseous structures: There is spondylitic change of the thoracolumbar spine with dextro scoliosis of the lumbar spine. IMPRESSION: EMPHYSEMA. NO ACUTE CT FINDINGS. NO MASS OR INFLAMMATORY CHANGES.
[2016-11-21] MEDS: Acetaminophen TAB* 325 MG PO PRN ×3 (00:17→15:40)
[2016-11-21] MEDS: Levofloxacin 500 MG IVPREMIX(* 500 MG/100 ML BAG IVPB SCH (00:52)
[2016-11-21] MEDS: Albuterol 2.5 MG/3 ML NEB.SOL* (0.083%) INH SCH ×4 (01:35→19:08)
[2016-11-21] MEDS: methylPREDNISolone SOD 40 MG* 1 ML VIAL IV SCH ×3 (05:06→19:56)
[2016-11-21] MEDS: Omeprazole CAP* 20 MG PO SCH (05:07)
[2016-11-21] MEDS: Heparin VIAL(*) 5000 UNITS/ML VIAL (FIVE THOUSAND) SUBCUT SCH ×3 (05:07→21:29)
[2016-11-21] MEDS: Tiotropium CAP.INH* CAP.INH/18 MCG INH SCH (07:18)
[2016-11-21] MEDS: Mometasone/Formoter 200/5 MDI INH SCH ×2 (07:19→19:22)
[2016-11-21] MEDS: guaiFENesin ER TAB 600 MG PO SCH ×2 (08:46→19:56)
[2016-11-21] MEDS: Docusate CAP* 100 MG PO SCH ×2 (08:46→19:53)
--- NOTE | 2016-11-21 10:58 | PN ---
Subjective Date of Service: 11/21/16 Interval History: HOSPITALIST PROGRESS NOTE Patient seen and examined at bedside. He had some dyspnea and wheezing last night and earlier today. Cough is productive now with yellow sputum. Back pain is unchanged. Family History: Unchanged from Admission Social History: Unchanged from Admission Past Medical History: Unchanged from Admission Objective Active Medications: Acetaminophen (Tylenol Tab*) 650 mg PO Q6H PRN PRN Reason: FEVER/PAIN Last Admin: 11/21/16 08:45 Dose: 650 mg Albuterol (Ventolin 2.5 Mg/3 Ml Neb.Nicol*) 2.5 mg INH Q2H PRN PRN Reason: SOB/WHEEZING Albuterol (Ventolin 2.5 Mg/3 Ml Neb.Nicol*) 2.5 mg INH RT.H2RR-[id number] AWAKE [facility] Last Admin: 11/21/16 07:18 Dose: 2.5 mg Docusate Sodium (Colace Cap*) 200 mg PO BID [facility] Last Admin: 11/21/16 08:46 Dose: 200 mg Guaifenesin (Mucinex*) 1,200 mg PO BID [facility] Last Admin: 11/21/16 08:46 Dose: 1,200 mg Heparin Sodium (Porcine) (Heparin Vial(*)) 5,000 units SUBCUT Q8HR [facility] Last Admin: 11/21/16 05:07 Dose: 5,000 units Levofloxacin/Dextrose (Levaquin 500 Mg Ivpremix(*)) 500 mg in 100 mls @ 100 mls /hr IVPB Q24H [facility] Last Admin: 11/21/16 00:52 Dose: 100 mls/hr Iohexol (Omnipaque 300* (Contrast)) 71 ml IV ONCE [facility] Stop: 11/22/16 11:27 Last Admin: 11/20/16 14:10 Dose: 71 ml Methylprednisolone Sodium Succinate (Solu-Medrol 40 Mg) 40 mg IV Q8H [facility] Last Admin: 11/21/16 05:06 Dose: 40 mg Mometasone Furoate/Formoterol Fumar (Dulera 200/5 Mdi*) 2 puff INH BID [facility] Last Admin: 11/21/16 07:19 Dose: 2 puff Omeprazole (Prilosec Cap*) 20 mg PO DAILY@0600 [facility] Last Admin: 11/21/16 05:07 Dose: 20 mg Ondansetron HCl (Zofran Inj*) 4 mg IV Q6H PRN PRN Reason: NAUSEA Tiotropium [place] (Spiriva Cap.Inh*) 1 cap INH DAILY [facility] Last Admin: 11/21/16 07:18 Dose: 1 cap Vital Signs 11/21/16 11/21/16 11/21/16 03:59 07:20 08:00 Temperature 97.7 F 97.5 F Pulse Rate 85 100 102 Respiratory 20 16 16 Rate Blood Pressure 117/72 149/80 (mmHg) O2 Sat by Pulse 94 99 97 Oximetry Oxygen Devices in Use Now: Nasal Cannula - 3 liters Appearance: Elderly thin male sitting up in bed in NAD. Eyes: No Scleral Icterus Ears/Nose/Mouth/Throat: Mucous Membranes Moist Neck: Trachea Midline Respiratory: Symmetrical Chest Expansion and Respiratory Effort, - - BS+ bilaterally decreased with faint wheezes on the right Cardiovascular: RRR - Normal S1 and S2 Abdominal: NL Sounds; No Tenderness; No Distention Extremities: No Edema Neurological: Alert and Oriented x 3, NL Muscle Strength and Tone Lines/Tubes/Other Access: Clean, Dry and Intact Peripheral IV Nutrition: Taking PO's Result Diagrams: 11/20/16 05:27 11/19/16 20:29 Assess/Plan/Problems-Billing Assessment: Mr. Ceja is a 66yo M with PMH of COPD on home O2, chronic back pain, who presented to ED with c/o dyspnea, found to have COPD exacerbation. - Patient Problems (1) COPD exacerbation Comment: - Secondary to bronchitis. - Continue levofloxacin, steroids, and bronchodilators. - Continue supplemental O2. - Encourage flutter valve use. (2) Back pain Comment: - CT C/A/P did not show acute lesions. (3) DVT prophylaxis Comment: - SQ heparin.
[2016-11-22] MEDS: Levofloxacin 500 MG IVPREMIX(* 500 MG/100 ML BAG IVPB SCH (01:14)
[2016-11-22] MEDS: Albuterol 2.5 MG/3 ML NEB.SOL* (0.083%) INH SCH ×2 (01:24→07:26)
[2016-11-22] MEDS: methylPREDNISolone SOD 40 MG* 1 ML VIAL IV SCH (04:37)
[2016-11-22] MEDS: Heparin VIAL(*) 5000 UNITS/ML VIAL (FIVE THOUSAND) SUBCUT SCH (06:14)
[2016-11-22] MEDS: Omeprazole CAP* 20 MG PO SCH (06:14)
[2016-11-22] MEDS: Tiotropium CAP.INH* CAP.INH/18 MCG INH SCH (07:27)
[2016-11-22] MEDS: Mometasone/Formoter 200/5 MDI INH SCH (07:27)
[2016-11-22] MEDS: Docusate CAP* 100 MG PO SCH (07:49)
[2016-11-22] MEDS: Acetaminophen TAB* 325 MG PO PRN (07:49)
[2016-11-22] MEDS: guaiFENesin ER TAB 600 MG PO SCH (07:51)
[2016-11-22 08:23] VITALS: BP 133/81
--- NOTE | 2016-11-22 15:44 | DS ---
CC: JG Paul DISCHARGE SUMMARY: DATE OF ADMISSION: 11/19/16 DATE OF DISCHARGE: 11/22/16 PRIMARY CARE PROVIDER: JG Paul DISCHARGE DIAGNOSIS: Chronic obstructive pulmonary disease exacerbation secondary to bronchitis. SECONDARY DIAGNOSES: 1. Chronic obstructive pulmonary disease, on home oxygen. 2. Chronic back pain. 3. Prior history of tobacco abuse. MEDICATION LIST: 1. Albuterol HFA 1 puff inhaled q.4 hours p.r.n. shortness of breath. 2. Symbicort 160/4.5 two puffs inhaled b.i.d. 3. Spiriva 1 capsule inhaled daily. New medications: 1. Cyclobenzaprine 10 mg p.o. at bedtime. 2. Guaifenesin ER 1200 mg p.o. b.i.d. 3. Levofloxacin 500 mg p.o. daily for 5 more days. 4. Omeprazole 20 mg p.o. daily. 5. Prednisone taper as follows: 40 mg p.o. daily for 3 days, 30 mg for 3 days, 20 mg for 3 days, 1 0 mg for 3 days, 5 mg for 3 days, and stop. HOSPITAL COURSE: Mr. Ceja is a 66-year-old male with a past medical history as stated above that pre sented to the emergency room on 11/19/16 with complaints of shortness of breath and cough. The micky ent was admitted under the impression of COPD exacerbation and started on levofloxacin, bronchodilat ors, and IV steroids. Chest x-ray showed hyperinflated lung ruiz, but no evidence of active cardiopulmonary disease. The patient had progressive improvement of his respiratory status. The patient complains of low back pain especially on his left side that has been going on at least s camelia last winter. As the patient has a prior history of tobacco abuse and also appears to have lost some weight, decision was made to pursue CT of the chest, abdomen, and pelvis with contrast looking for any signs of malignancy. The CT showed emphysema, but no other acute CT findings, no masses or inflammatory changes. Osseous structures were described with a spondylitic change of the thoracolum bar spine with dextroscoliosis of the lumbar spine, but no other findings were mentioned in the repo rt. The patient will receive cyclobenzaprine as a muscle relaxant that he will take at bedtime and he prefers to continue to take Tylenol [id number] like he was doing before as he is a little b it apprehensive about starting any controlled substances. The patient will need to continue his wor kup for his back pain and also to complete his usual test including colonoscopy. He states that he has already been referred to see Dr. Sexton as outpatient. He is medically stable to be discharged at this time to follow up with JG Paul, on 11/27/16. PHYSICAL EXAMINATION: Vital Signs: Temperature 97.5, heart rate 76, respiratory rate is 15, oxygen saturation 96% on 2 L nasal cannula, blood pressure is 133/81. General: The patient is a pleasant, elderly male, sitting up in bed, in no acute distress. CVS: Normal S1, S2. Regular rate and rhyt hm. Chest: Breath sounds bilaterally decreased with no added sounds. Extremities: No edema. Forest ro: He is alert, awake, oriented x3. Able to move all 4 extremities. DIET: Regular diet. ACTIVITIES: As tolerated. DISPOSITION: To home. STATUS WHILE IN THE HOSPITAL: Inpatient. Please keep in mind, this is a summarized version of this patient's hospital stay. If you need more information, please feel free to call me at [phone] or please obtain the full medical records. TIME SPENT: Approximately 50 minutes was spent to complete this discharge. [id number]/[facility] #: [id number]
== END 2016-11-22 10:20 | disposition home or self-care (01) | DRG 192 ==
LOC: ED 17:55 → MED 22:40
PROVIDERS: ADMIT Hospitalist; ATTEND Internal Medicine
DX: J44.1 Chronic obstructive pulmonary disease with (acute) exacerbation (principal); Z99.81 Dependence on supplemental oxygen; J20.9 Acute bronchitis, unspecified; J44.0 Chronic obstructive pulmonary disease with (acute) lower respiratory infection; M54.5 Low back pain; Z87.891 Personal history of nicotine dependence; Z79.52 Long term (current) use of systemic steroids; Z79.899 Other long term (current) drug therapy; Z82.49 Family history of ischemic heart disease and other diseases of the circulatory system; Z83.3 Family history of diabetes mellitus; Z82.5 Family history of asthma and other chronic lower respiratory diseases; Z80.7 Family history of other malignant neoplasms of lymphoid, hematopoietic and related tissues
CPT/HCPCS: 36415; 71020; 71260; 74177; 80053; 83605; 85025; 85379; 85610; 93005; 94640; 94668; 94760; A9270-GY; J1644; J1956; J2270; J2920; J2930; Q9967

== ENCOUNTER 2017-01-14 15:08 | Emergency (ER) | payer MEDICARE, OTHER ==
[2017-01-14] MEDS ORDERED: Dexamethasone IV* 4 MG/ML 5 ML VIAL (20 MG) IVPB ONE (16:23)
[2017-01-14] MEDS ORDERED: Lidocaine PATCH 5%* 1 PATCH TRANSDERM ONE (17:00)
--- NOTE | 2017-01-14 17:02 | ED ---
Back Pain - HPI Summary HPI Summary: Pt here w/ acute on chronic LBP. He's had this "for a while now". MRI yesterday reveals DDD in lumbar and thoracic spine. Also has scoliosis and herniated discs in lumbar spine. Denies numbness, tingling, weakness or change in bowel/ bladder habits. He's tried multiple meds. Initially had some relief with meds - started with tramadol, valium then hydrocodone then oxycodone. Took morphine ER 15mg today w/o relief. He's awaiting a pain management referral and has appt w/ Dr. Tan tomorrow. Has not tried PT yet. He is here today as he can't walk from the pain. Appetite has been decreased as a result of pain as well - thin. Denies ab pain, nausea, vomiting, flank pain, urinary frequency/urgency/ hematuria, fever, chills. He lives alone and is here today with a friend who check on him daily. - History of Current Complaint Hx Obtained From: Patient, Family/Wine Bottle Inspector - female friend and her male partner <Mali Chandler - Last Filed: 01/14/17 18:22> <Kina Angelo - Last Filed: 01/14/17 20:17> - History of Current Complaint Chief Complaint: EDBackInjuryPain Stated Complaint: BACK PAIN Time Seen by Provider: 01/14/17 15:20 - Allergies/Home Medications Allergies/Adverse Reactions: Allergies Allergy/AdvReac Type Severity Reaction Status Date / Time No Known Allergies Allergy Verified 01/04/17 14:23 PMH/Surg Hx/FS Hx/Imm Hx Previously Healthy: Yes Endocrine/Hematology History: Denies: Hx Anticoagulant Therapy, Hx Blood Disorders, Hx Diabetes, Autoimmune Disease Cardiovascular History: Denies: Hx Hypertension, Hx Pacemaker/ICD Respiratory History: Reports: Hx Chronic Obstructive Pulmonary Disease (COPD) - on History: Denies: Hx Renal Disease Musculoskeletal History: Reports: Hx Back Problems - thoracic and lubar DDD; multiple disc hernations, Hx Scoliosis Sensory History: Reports: Hx Contacts or Glasses Denies: Hx Hearing Aid Opthamlomology History: Reports: Hx Contacts or Glasses Psychiatric History: Denies: Hx Panic Disorder - Surgical History Surgery Procedure, Year, and Place: inguinal hernia as a kid Infectious Disease History: No Infectious Disease History: Denies: Traveled Outside the [place] in Last 30 Days - Family History Known Family History: Positive: Cardiac Disease, Other - Stroke - Social History Occupation: Unemployed Lives: Alone Alcohol Use: Rare Alcohol Amount: stopped recently because he is not eating well Hx Substance Use: No Substance Use Type: Reports: None Hx Tobacco Use: Yes Smoking Status (MU): Former Smoker Type: Cigarettes Have You Smoked in the Last Year: No <Mali Chandler - Last Filed: 01/14/17 18:22> Review of Systems Constitutional: Negative Negative: Fever, Chills, Fatigue Cardiovascular: Negative Negative: Chest Pain Respiratory: Negative Negative: Shortness Of Breath Gastrointestinal: Negative Negative: Abdominal Pain, Vomiting, Diarrhea, Nausea Genitourinary: Negative Musculoskeletal: Other - see HPI Skin: Negative Neurological: Negative Psychological: Normal All Other Systems Reviewed And Are Negative: Yes <Mali Chandler - Last Filed: 01/14/17 18:22> All Other Systems Reviewed And Are Negative: Yes <Kina Angelo - Last Filed: 01/14/17 20:17> Physical Exam Triage Information Reviewed: Yes Vital Signs On Initial Exam: Initial Vitals Temp Pulse Resp BP Pulse Ox 98.5 F 110 18 142/84 100 01/14/17 15:29 01/14/17 15:29 01/14/17 15:29 01/14/17 15:29 01/14/17 15:29 Vital Signs Reviewed: Yes Appearance: Positive: No Pain Distress - pt is positioned lying on Rt hip, resting on elbow w/ Rt leg folded up and over Lt thigh - reports feeling best in this position, Cachectic Skin: Positive: Warm, Dry - no erythema, no ecchymosis over affected area Eyes: Positive: EOMI, Conjunctiva Clear - anicteric sclera ENT: Positive: Hearing grossly normal Respiratory/Lung Sounds: Positive: Decreased Breath Sounds - wearing 02; distant breath sounds throughout. Negative: Rales, Rhonchi, Wheezes Cardiovascular: Positive: Normal, Pulses are Symmetrical in both Upper and Lower Extremities Abdomen Description: Positive: Nontender, Soft Bowel Sounds: Positive: Present Musculoskeletal: Negative: Pain @ - spinous pp and paraspinal mm are NTTP Neurological: Positive: Normal, Sensory/Motor Intact, Alert, Oriented to Person Place, Time, CN Intact II-III Psychiatric: Positive: Normal - concerned but calm <Mali Chandler - Last Filed: 01/14/17 18:22> Vital Signs On Initial Exam: Initial Vitals Temp Pulse Resp BP Pulse Ox 98.5 F 110 18 142/84 100 01/14/17 15:29 01/14/17 15:29 01/14/17 15:29 01/14/17 15:29 01/14/17 15:29 <Cecilia Angeloica - Last Filed: 01/14/17 20:17> Diagnostics - Vital Signs Vital Signs Temp Pulse Resp BP Pulse Ox 01/14/17 16:09 98.5 F 110 18 142/84 100 01/14/17 15:29 98.5 F 110 18 142/84 100 <Mali Chandler - Last Filed: 01/14/17 18:22> - Vital Signs Vital Signs Temp Pulse Resp BP Pulse Ox 01/14/17 18:36 100 115/68 01/14/17 18:15 16 01/14/17 16:09 98.5 F 110 18 142/84 100 01/14/17 15:29 98.5 F 110 18 142/84 100 <Kina Angelo - Last Filed: 01/14/17 20:17> Re-Evaluation - Re-Evaluation First Eval Change: Unchanged - dexamethasone, lidoderm patch Second Eval Change: Unchanged - acetaminophen 650gm PO - will try IV dilaudid to asses pain control and vital signs <Mali Chandler - Last Filed: 01/14/17 18:22> Back Pain Course/Dx - Course Course Of Treatment: Pt presents today w/ acute on chronic back pain. He specifically comes in today because he cannot walk d/t the pain. He reports no relief with narcotic pain meds nor valium which he's been trying at home (see HPI). His friend indicates he's appeared better in the past when he's had steroids for his COPD. Initiated a course of dexamethasone and lidocaine patch. As he just had an MRI on thoracic and lumbar spine and sx are no different, refrained from ordering labs and further imaging. MRI's indicate scoliosis, DDD and OA, left sided disc protrusion at L5-S1, multilevel neuroforaminal narrowing. No significant central canal stenosis. Osteopenia of sacrum. Lesions of L1, L4 with characteristics of hemangiomas. No change in bowel/bladder habits and no LE radiculopathy. He has appointment with Dr. Tan tomorrow. Pt has no change in sx w/ dexamethasone and lidoderm. Friend requested PO acetaminophen and will trial IV dilaudid (dose calculated from current meds) - if he has relief of pain, can walk and vitals are stable, consider d/c w/ PO dilaudid to carry him through until tomorrow for appointmetn with Dr. Tan. If no relief or vital signs are weak, consider admission for obseravtion and pain control. If this occurs, would recommend social work consult tomorrow morning. Signed out to Kina Angelo PA-C @ 18:31 <Mali Chandler - Last Filed: 01/14/17 18:22> - Course Assessment/Plan: Patient able to walk with aide to bathroom with minimal assistance, feels comfortable and safe returning home, will follow up with DR. tan tomorrow. Given two doses of dilaudid 2mg q6 hours for home, not to take with other pain medication. patient in agreement. <Kina Angelo - Last Filed: 01/14/17 20:17> - Diagnoses Provider Diagnoses: Acute exacerbation of chronic low back pain, DDD (degenerative disc disease), lumbar, DDD (degenerative disc disease), thoracic, Disc herniation, Scoliosis Discharge - Discharge Plan Discharge Disposition Comment: signed out to Kina Angelo PA-C <Mali Chandler - Last Filed: 01/14/17 18:22> <Kina Angelo - Last Filed: 01/14/17 20:17> - Discharge Plan Condition: Stable Disposition: HOME Patient Education Materials: Hydromorphone (By mouth), Low Back Strain (ED) Referrals: Anitha Aranda MD [Primary Care Provider] - Mike Tan MD [Medical Doctor] - Additional Instructions: - Follow up with DR. Tan tomorrow - Dilaudid 2mg every 6 hours as needed for pain- do NOT take with other pain medication other than tylenol (last dose of dilaudid in hospital 6:15PM - Return to ER with loss of bowel, bladder function, decreased ambulation, increased pain
[2017-01-14] MEDS ORDERED: Acetaminophen TAB* 325 MG PO ONE (17:19)
[2017-01-14] MEDS ORDERED: Ondansetron INJ* 2 MG/ML VIAL IV ONE (18:03)
[2017-01-14] MEDS ORDERED: HYDROmorphone* 1 MG/ML 1 ML SYR IV SLOW PU ONE (18:03)
[2017-01-14] MEDS ORDERED: HYDROmorphone* 2 MG/ML 1 ML SYR IV SLOW PU ONE (18:09)
[2017-01-14 18:36] VITALS: BP 115/68
[2017-01-14] MEDS ORDERED: HYDROmorphone TAB* 2 MG PO ONE (20:10)
[2017-01-14] MEDS ORDERED: Lidocaine Patch REMOVE* 1 NOTE MISC SCH (21:00)
--- NOTE | 2017-01-16 11:11 | ED ---
Progress - Progress Note Progress Note: 01/16/17 at 11:10 pt requesting Lidoderm patch RX 5% sent to [facility] on [address] to wear one daily x 12 hours then remove for 12 hours. Re-Evaluation - Re-Evaluation First Eval Change: Unchanged - dexamethasone, lidoderm patch Second Eval Change: Unchanged - acetaminophen 650gm PO - will try IV dilaudid to asses pain control and vital signs Course/Dx - Course Course Of Treatment: Pt presents today w/ acute on chronic back pain. He specifically comes in today because he cannot walk d/t the pain. He reports no relief with narcotic pain meds nor valium which he's been trying at home (see HPI). His friend indicates he's appeared better in the past when he's had steroids for his COPD. Initiated a course of dexamethasone and lidocaine patch. As he just had an MRI on thoracic and lumbar spine and sx are no different, refrained from ordering labs and further imaging. MRI's indicate scoliosis, DDD and OA, left sided disc protrusion at L5-S1, multilevel neuroforaminal narrowing. No significant central canal stenosis. Osteopenia of sacrum. Lesions of L1, L4 with characteristics of hemangiomas. No change in bowel/bladder habits and no LE radiculopathy. He has appointment with Dr. Tan tomorrow. Pt has no change in sx w/ dexamethasone and lidoderm. Friend requested PO acetaminophen and will trial IV dilaudid (dose calculated from current meds) - if he has relief of pain, can walk and vitals are stable, consider d/c w/ PO dilaudid to carry him through until tomorrow for appointmetn with Dr. Tan. If no relief or vital signs are weak, consider admission for obseravtion and pain control. If this occurs, would recommend social work consult tomorrow morning. Signed out to Kina Angelo PA-C @ 18:31 - Diagnoses Provider Diagnoses: Acute exacerbation of chronic low back pain, DDD (degenerative disc disease), lumbar, DDD (degenerative disc disease), thoracic, Disc herniation, Scoliosis
== END 2017-01-14 20:40 | disposition home or self-care (01) ==
LOC: ED 15:08
DX: M54.5 Low back pain (principal); M51.36 Other intervertebral disc degeneration, lumbar region; M51.24 Other intervertebral disc displacement, thoracic region; M41.9 Scoliosis, unspecified; Z87.891 Personal history of nicotine dependence; Z87.09 Personal history of other diseases of the respiratory system
CPT/HCPCS: 99283; A9270-GY; J1100; J1170; J2405

== ENCOUNTER 2017-01-17 17:00 | Emergency (ER) | payer MEDICARE, OTHER ==
[2017-01-17] MEDS ORDERED: HYDROmorphone* 1 MG/ML 1 ML SYR IV ONE (19:46)
[2017-01-17] MEDS ORDERED: Ondansetron INJ* 2 MG/ML VIAL IV ONE (19:46)
[2017-01-17] MEDS ORDERED: LORazepam INJ* 2 MG/ML 1 ML VIAL IV ONE (20:32)
[2017-01-17 23:30] VITALS: BP 117/80
--- NOTE | 2017-01-18 11:19 | ED ---
Adarsh Villanueva Nikita, scribed for Blade Cortez MD on 01/17/17 at 1918 . Back Pain - HPI Summary HPI Summary: This patient is a 66 year old M presenting to ED with a chief complaint of chronic lower back pain and spasms since last night. Pt reports it was better this morning, but started getting worse again this afternoon. Pain radiates to L flank. The patient rates the pain 10/10 in severity. Symptoms aggravated by movement. Symptoms alleviated by lying on R side and on stomach. Pt reports taking Morphine at home that does not help alleviate symptoms. Pt was in the ED on January 14 and had an MRI done at [facility] on January 07 prior to visit in ED today. PMHx of COPD. - History of Current Complaint Chief Complaint: EDBackInjuryPain Stated Complaint: BACK PAIN Time Seen by Provider: 01/17/17 19:02 Hx Obtained From: Patient Onset/Duration: Lasting Hours - Worse this afternoon, Still Present Onset/Duration: Started Hours Ago - Worse this afternoon, Still Present Timing: Intermittent - chronic and intermittent Back Pain Location: Is Discrete @ - Lower back, Radiates To - L flank Severity Initially: Severe Severity Currently: Severe Pain Intensity: 10 Pain Scale Used: 0-10 Numeric Aggravating Symptom(s): Movement Alleviating Symptom(s): Position - Lying on R side and stomach. At home Morphine does NOT alleviate symptoms. Associated Signs And Symptoms: Positive: Flank Pain - Allergies/Home Medications Allergies/Adverse Reactions: Allergies Allergy/AdvReac Type Severity Reaction Status Date / Time No Known Allergies Allergy Verified 01/04/17 14:23 PMH/Surg Hx/FS Hx/Imm Hx Endocrine/Hematology History: Denies: Hx Anticoagulant Therapy, Hx Blood Disorders, Hx Diabetes Cardiovascular History: Denies: Hx Hypertension, Hx Pacemaker/ICD Respiratory History: Reports: Hx Chronic Obstructive Pulmonary Disease (COPD) - on History: Denies: Hx Renal Disease Musculoskeletal History: Reports: Hx Back Problems - thoracic and lubar DDD; multiple disc hernations, Hx Scoliosis Sensory History: Reports: Hx Contacts or Glasses Denies: Hx Hearing Aid Opthamlomology History: Reports: Hx Contacts or Glasses Psychiatric History: Denies: Hx Panic Disorder - Surgical History Surgery Procedure, Year, and Place: inguinal hernia as a kid Infectious Disease History: No Infectious Disease History: Denies: Traveled Outside the [place] in Last 30 Days - Family History Known Family History: Positive: Cardiac Disease, Other - Stroke - Social History Alcohol Use: Rare Alcohol Amount: stopped recently because he is not eating well Hx Substance Use: No Substance Use Type: Reports: None Hx Tobacco Use: Yes Smoking Status (MU): Former Smoker Type: Cigarettes Have You Smoked in the Last Year: No Review of Systems Negative: Fever Positive: Other - Back pain radiating to L flank All Other Systems Reviewed And Are Negative: Yes Physical Exam Triage Information Reviewed: Yes Vital Signs On Initial Exam: Initial Vitals Temp Pulse Resp BP Pulse Ox 98.8 F 69 20 112/78 99 01/17/17 17:01 01/17/17 17:01 01/17/17 17:01 01/17/17 17:01 01/17/17 17:01 Vital Signs Reviewed: Yes Appearance: Positive: Well-Appearing, No Pain Distress Skin: Positive: Warm, Skin Color Reflects Adequate Perfusion, Dry Head/Face: Positive: Normal Head/Face Inspection Eyes: Positive: Normal ENT: Positive: Normal ENT inspection Neck: Positive: Supple, Nontender Respiratory/Lung Sounds: Positive: Clear to Auscultation, Breath Sounds Present Cardiovascular: Positive: RRR Abdomen Description: Positive: Nontender, Soft Bowel Sounds: Positive: Present Musculoskeletal: Positive: Pain @ - Tender to touch at lower back Neurological: Positive: Normal, Sensory/Motor Intact, Alert, Oriented to Person Place, Time, CN Intact II-III Psychiatric: Positive: Affect/Mood Appropriate - Jean Coma Scale Coma Scale Total: 15 Diagnostics - Vital Signs Vital Signs Temp Pulse Resp BP Pulse Ox 01/17/17 19:02 156/83 01/17/17 17:01 98.8 F 69 20 112/78 99 - Laboratory Lab Statement: Any lab studies that have been ordered have been reviewed, and results considered in the medical decision making process. Re-Evaluation - Re-Evaluation First Eval Re-Evaluation Time: 21:50 Change: Improved Comment: Pt is feeling better. Discussed discharge plan. Back Pain Course/Dx - Course Course Of Treatment: Mr. Ceja has a long history of back problems and is on strong narcotic medications chronically. He came in with an exacerbation which improved with ativan as a muscle relaxer. His exam was nonfocal. - Diagnoses Provider Diagnoses: Low back strain Discharge - Discharge Plan Condition: Stable Disposition: HOME Patient Education Materials: Low Back Strain (ED) Referrals: Anitha Aranda MD [Primary Care Provider] - 3 Days The documentation as recorded by the Adarsh sarah Nikita accurately reflects the service I personally performed and the decisions made by me, Blade Cortez MD.
== END 2017-01-17 23:37 | disposition home or self-care (01) ==
LOC: ED 17:00
DX: S39.012A Strain of muscle, fascia and tendon of lower back, initial encounter (principal); J44.9 Chronic obstructive pulmonary disease, unspecified; Z99.81 Dependence on supplemental oxygen; X58.XXXA Exposure to other specified factors, initial encounter; Y92.9 Unspecified place or not applicable; Z87.891 Personal history of nicotine dependence
CPT/HCPCS: 99284; J1170; J2060; J2405

== ENCOUNTER 2017-03-26 13:48 | Inpatient (IN) | payer MEDICARE, OTHER ==
[2017-03-26] MEDS ORDERED: Albuterol/Ipratropium NEB.SOL* Albuterol 2.5 MG/Ipratropium 0.5 MG 3 ML INH ONE (16:34)
[2017-03-26] MEDS ORDERED: methylPREDNISolone 125 MG* 2 ML VIAL IV ONE (16:34)
--- NOTE | 2017-03-26 17:16 | RAD ---
INDICATION: Cough. COMPARISON: Comparison is made with a prior chest x-ray study from November 19, 2016. TECHNIQUE: A portable view of the chest was obtained. FINDINGS: Cardiac and mediastinal contours appear to be within normal limits. The lungs are underinflated. There are small infiltrates at both lung bases. There is suggestion of a small left pleural effusion. IMPRESSION: SMALL BIBASILAR INFILTRATES AND PROBABLE SMALL LEFT PLEURAL EFFUSION.
[2017-03-26] MEDS ORDERED: HYDROmorphone TAB* 2 MG PO ONE (17:24)
[2017-03-26 17:28] LABS: Hematocrit 36 % (42-52); Hemoglobin 11.9 g/dl (14.0-18.0); Mean Corpuscular HGB Conc 33 g/dl (31-36); Mean Corpuscular Hemoglobin 29 pg (27-31); Mean Corpuscular Volume 87 fL (80-94); Mean Platelet Volume 7 um3 (7.4-10.4); Red Blood Count 4.13 10^6/ul (4.0-5.4); Red Cell Distribution Width 13 % (10.5-15); White Blood Count 13.8 10^3/ul (3.5-10.8)
[2017-03-26] MEDS ORDERED: cefTRIAXone(*) 1 GM in NS 0.9% 50 ML* 50 ML IVPB ONE (17:38)
[2017-03-26] MEDS ORDERED: Azithromycin IV(*) 500 MG in NS 0.9% 250 ML* 250 ML IVPB ONE (17:38)
[2017-03-26 17:44] LABS: Albumin 3.7 g/dL (3.2-5.2); BUN/Creatinine Ratio 20.4 (8-20); Calcium 8.7 mg/dL (8.6-10.3); EGFR African American 195.2 (>60); EGFR Non-African American 151.8 (>60); Globulin 2.1 g/dL (2-4); Total Bilirubin 0.7 mg/dL (0.2-1.0); Total Protein 5.8 g/dL (6.4-8.9)
[2017-03-26 18:13] LABS: Urine Bilirubin Negative (Negative); Urine Glucose Negative (Negative); Urine Nitrite Negative (Negative)
[2017-03-26] MEDS ORDERED: Ondansetron INJ* 2 MG/ML VIAL IV PRN (18:27)
[2017-03-26] MEDS ORDERED: Albuterol 2.5 MG/3 ML NEB.SOL* (0.083%) INH PRN (18:27)
[2017-03-26] MEDS ORDERED: cefTRIAXone VIAL(*) 1,000 MG in NS 0.9% 50 ML* 50 ML IVPB SCH (18:28)
[2017-03-26] MEDS ORDERED: clonazePAM TAB(*) 0.5 MG PO PRN (18:30)
[2017-03-26] MEDS ORDERED: Morphine INJ* 2 MG/ML 1 ML SYRINGE (TWO MG - NEW SYRINGE VERSION) IV PRN (18:32)
[2017-03-26] MEDS ORDERED: Azithromycin IV(*) 500 MG in NS 0.9% 250 ML* 250 ML IVPB SCH (19:00)
[2017-03-26] MEDS ORDERED: Albuterol/Ipratropium NEB.SOL* Albuterol 2.5 MG/Ipratropium 0.5 MG 3 ML INH SCH (19:00)
[2017-03-26] MEDS: Mometasone/Formoter 200/5 MDI INH SCH (20:40)
[2017-03-26 20:50] LABS: EGFR African American 195.2 (>60); EGFR Non-African American 151.8 (>60)
[2017-03-26] MEDS: Morphine TAB Extended Release (*) 15 MG TAB.ER PO SCH (20:55)
[2017-03-26] MEDS: Senna TAB PO SCH (20:56)
[2017-03-26] MEDS: Gabapentin CAP(*) 300 MG PO SCH (20:56)
[2017-03-26] MEDS: predniSONE TAB* 20 MG PO SCH (20:56)
[2017-03-26] MEDS: Heparin VIAL(*) 5000 UNITS/ML VIAL (FIVE THOUSAND) SUBCUT SCH (20:57)
[2017-03-26] MEDS: NS 0.9% 1000 ML* 1,000 ML IV SCH (21:09)
[2017-03-26 21:33] LABS: Urine Bilirubin Negative (Negative); Urine Glucose Negative (Negative); Urine Nitrite Negative (Negative)
[2017-03-26] MEDS: Albuterol/Ipratropium NEB.SOL* Albuterol 2.5 MG/Ipratropium 0.5 MG 3 ML INH SCH (22:28)
[2017-03-26] MEDS: Lidocaine PATCH 5%* 1 PATCH TRANSDERM PRN (22:36)
--- NOTE | 2017-03-27 00:11 | HP ---
CC: Jonathan Alfaro NP * HISTORY AND PHYSICAL: DATE OF ADMISSION: 03/26/17 PRIMARY CARE PROVIDER: Jonathan Alfaro NP ATTENDING PHYSICIAN WHILE IN THE HOSPITAL: Jim Schwartz MD * (report dictated by Donnie Mayes NP). CHIEF COMPLAINT: 1. Cough. 2. Progressively worsening shortness of breath. HISTORY OF PRESENT ILLNESS: Mr. Ceja is a 66-year-old male patient who has a history of severe COPD. He is on chronic steroids. In addition to this, he is also on chronic O2. He comes in today stating in the last 2 to 3 days he has had progressive worsening shortness of breath and worsening back discomfort. He states he has been just recently starting to cough in the last 24 hours. It was initially nonproductive, although he is bringing up some mucopurulent sputum here in the ED. He said he did have a fever of 100.1 today. With visiting nurses association, he touched base with his outdoor illuminating engineer, Dr. Sexton. They were concerned. They said that he probably should be evaluated in the ED because of his worsening symptoms, his worsening shortness of breath. He came in, it was noted that he had pneumonia in the white count. He denies having any chest discomfort. He states he is having lower back pain and also pain in his thoracic back as well in his upper back that has been getting progressively worse. He states the pain is worse when he takes a deep breath and it is worse with coughing. He says his appetite has been down and he has just been aching all over. To his knowledge, he has not had any recent sick contacts. There has been no vomiting, no diarrhea. He denies having any dysuria or any frequencies or abdominal discomfort. Because of the worsening shortness of breath and the fact that he was now found to have pneumonia, we are asked to evaluate for admission. PAST MEDICAL HISTORY: Significant for: 1. COPD, on chronic O2 and steroids. 2. History of chronic back pain. PAST SURGICAL HISTORY: He reports he has had a hernia repair. MEDICATIONS: Home meds according to his list include: 1. Morphine extended release 15 mg p.o. t.i.d. 2. Senna 6 tabs p.o. daily. 3. Ibuprofen 400 mg p.o. 4 times a day as needed. 4. Prednisone 5 mg daily. 5. Spiriva 1 capsule inhaled daily. 6. Symbicort 2 puffs inhaled b.i.d. 7. Ventolin 1 puff inhaled every 4 hours as needed. 8. DuoNeb 1 neb every 6 hours as needed. 9. Klonopin 0.25 to 0.75 mg twice a day as needed. 10. Prilosec 40 mg daily. 11. Dilaudid 2 mg every 4 hours as needed. 12. Lidoderm patch 1 patch transdermally daily as needed. 13. Gabapentin 600 mg p.o. t.i.d. ALLERGIES: His allergies to medications include no known drug allergies. FAMILY HISTORY: His mother has a history of heart disease, COPD. Father had a history of diabetes. SOCIAL HISTORY: He is a former smoker. He used to be a heavy drinker, but he does not drink anymore, if he does, it was only on special occasions, maybe a handful of times each year. Surrogate decision makers are his sister and his . REVIEW OF SYSTEMS: There is a fever of 100.1. There is no double vision. There is no ear discharge. Denied having any rhinorrhea. No sore throat. No thyroid enlargement. Denied having any chest discomfort. There was dyspnea on exertion. No orthopnea. No nocturnal dyspnea. There was no abdominal pain. No nausea. No vomiting. No dysuria. No frequency. No seizure. No loss of consciousness. No pruritus and no skin ulcerations. Review of 14 systems completed, all others negative. PHYSICAL EXAMINATION GENERAL: At this time, Mr. Ceja is a 66-year-old male patient. He is chronically ill appearing. He is cachectic. He is sitting in the ER stretcher. He does not appear to be in any acute respiratory distress. VITAL SIGNS: Blood pressure 112/92, last one was 89/75, but then while talking in the room, it was 125/40 with a pulse of 102; respirations 20; O2 sat of 97% on 2 L; and a temperature 99.0. HEENT: Head: Atraumatic. Eyes: EOMs intact. Sclerae anicteric and not pale. Throat: Oral mucosa appears to be dry. No oropharyngeal erythema. NECK: Supple. LUNGS: Diminished throughout. He did have some wheezing in the upper lobes. Equal diaphragmatic expansion. HEART: Sounds S1, S2. Regular rate and rhythm. No murmurs, rubs, or gallops. ABDOMEN: Soft, flat, nontender. Bowel sounds are present. EXTREMITIES: Pulses 2+ throughout. Moving all 4 extremities with 5/5 strength. NEUROLOGIC: He is awake, alert, oriented x3. Speech clear. Tongue midline. No gross focal deficits. SKIN: Intact. DIAGNOSTIC STUDIES/LAB DATA: Labs reveal WBC 13.8, RBC of 4.13, hemoglobin 11.9, hematocrit 36, platelet count of 630. INR is 0.94, PTT of 32.2. Sodium 128, potassium 4.0, chloride of 92, bicarb 32, BUN 11, creatinine of 0.54, glucose 112. Lactate 1.3. Calcium 8.7. Total bili 0.7, AST 16, ALT 14, alk phos 38. Albumin was 3.7. Urine is pending. He did have a chest x-ray obtained today, which revealed small basilar infiltrates and probable small left pleural effusion. Old medical records reviewed. ASSESSMENT AND PLAN: Mr. Ceja is a 66-year-old male patient with multiple medical problems coming in to the ER today with complaints of worsening cough, shortness of breath. On evaluation, was found to have pneumonia. He will be admitted under inpatient status for: 1. Pneumonia with chronic obstructive pulmonary disease exacerbation. At this point, I will go ahead and put him on Rocephin and azithromycin. Blood cultures have been sent. His lactate was stable. He does not appear to be septic. At this point, I will go ahead and give him normal saline at 100 for 1 L. We will give him antibiotics and put him on standing nebs, steroids and p.r.n. albuterol and aggressive pulmonary toileting. We will send off a flu swab in addition to the legionella antigen and strep pneumo antigen and we will continue to follow closely. 2. Chronic pain. I will continue his meds as prescribed. He is on medical marijuana. Unfortunately, we cannot dispense this here. So, I will give him a p.r.n. IV morphine if he does need this for pain. 3. DVT prophylaxis: He is high risk, will be placed on heparin subcu. 4. Code status: He wishes to be a DNR. There is a MOLST. We will need to get this on file, which we do have. 5. Fluids, electrolytes, and nutrition: He can have a regular diet. TIME SPENT: On admission 60 minutes, greater than half the time spent face-to- face with the patient obtaining my history and physical, the other half time was spent going over the plan of care with the patient and implementing plan of care. I did discuss the plan of care with my attending, Dr. Schwartz; he is in agreement. DONNIE MAYES, MATTEO [id number]/[facility]PS #: [id number] ADELA
[2017-03-27] MEDS: Ibuprofen TAB* 400 MG PO PRN ×3 (00:35→21:55)
[2017-03-27] MEDS: Albuterol/Ipratropium NEB.SOL* Albuterol 2.5 MG/Ipratropium 0.5 MG 3 ML INH SCH ×7 (02:56→22:53)
[2017-03-27] MEDS: Heparin VIAL(*) 5000 UNITS/ML VIAL (FIVE THOUSAND) SUBCUT SCH ×3 (05:33→21:55)
[2017-03-27] MEDS: NS 0.9% 1000 ML* 1,000 ML IV SCH (07:41)
[2017-03-27] MEDS: Mometasone/Formoter 200/5 MDI INH SCH ×2 (08:11→20:44)
[2017-03-27 08:45] LABS: BUN/Creatinine Ratio 20.4 (8-20); EGFR African American 218.3 (>60); EGFR Non-African American 169.8 (>60); Potassium 4.1 mmol/L (3.5-5.0)
[2017-03-27 08:53] LABS: Hematocrit 37 % (42-52); Hemoglobin 12.1 g/dl (14.0-18.0); Mean Corpuscular HGB Conc 33 g/dl (31-36); Mean Corpuscular Hemoglobin 29 pg (27-31); Mean Corpuscular Volume 87 fL (80-94); Mean Platelet Volume 8 um3 (7.4-10.4); Red Blood Count 4.23 10^6/ul (4.0-5.4); Red Cell Distribution Width 13 % (10.5-15); White Blood Count 5.2 10^3/ul (3.5-10.8)
[2017-03-27] MEDS: Gabapentin CAP(*) 300 MG PO SCH ×3 (09:36→21:50)
[2017-03-27] MEDS: predniSONE TAB* 20 MG PO SCH (09:46)
[2017-03-27] MEDS: Morphine TAB Extended Release (*) 15 MG TAB.ER PO SCH ×3 (09:48→21:50)
[2017-03-27] MEDS: Magnesium Oxide TAB* 400 MG PO SCH (09:51)
[2017-03-27] MEDS: Omeprazole CAP* 20 MG PO SCH (10:18)
[2017-03-27] MEDS: HYDROmorphone TAB* 2 MG PO PRN (12:36)
[2017-03-27] MEDS ORDERED: clonazePAM TAB(*) 0.5 MG PO PRN (14:02)
[2017-03-27] MEDS ORDERED: clonazePAM TAB(*) 1 MG PO PRN (14:02)
--- NOTE | 2017-03-27 14:06 | PN ---
Subjective Date of Service: 03/27/17 Interval History: Seen and examined with friend/HCP at bedside cough continues Back pain continues breathing at baseline Objective Active Medications: Acetaminophen (Tylenol Tab*) 650 mg PO Q4H PRN PRN Reason: FEVER/PAIN Albuterol (Ventolin 2.5 Mg/3 Ml Neb.Nicol*) 2.5 mg INH Q2H PRN PRN Reason: SOB/WHEEZING Albuterol/Ipratropium (Duoneb (Albuterol 2.5 Mg/Ipratropium 0.5 Mg)) 1 neb INH [id number] AWAKE [facility] Last Admin: 03/27/17 14:00 Dose: 1 neb Clonazepam (Klonopin Tab(*)) 0.25 mg PO BID PRN PRN Reason: ANXIETY Last Admin: 03/27/17 09:48 Dose: 0.25 mg Gabapentin (Neurontin Cap(*)) 600 mg PO TID [facility] Last Admin: 03/27/17 09:36 Dose: Not Given Heparin Sodium (Porcine) (Heparin Vial(*)) 5,000 units SUBCUT Q8HR [facility] Last Admin: 03/27/17 05:33 Dose: 5,000 units Hydromorphone HCl (Dilaudid Tab*) 2 mg PO Q4H PRN PRN Reason: PAIN Last Admin: 03/27/17 12:36 Dose: 2 mg Azithromycin 500 mg/ Sodium (Chloride) 250 mls @ 250 mls/hr IVPB DAILY@2000 [facility] Ceftriaxone Sodium 1,000 mg/ (Sodium Chloride) 50 mls @ 200 mls/hr IVPB DAILY@ 1800 [facility] Ibuprofen (Motrin Tab*) 400 mg PO Q6H PRN PRN Reason: PAIN Last Admin: 03/27/17 12:37 Dose: 400 mg Lidocaine (Lidoderm 5% Patch*) 1 patch TRANSDERM DAILY PRN PRN Reason: PAIN Last Admin: 03/26/17 22:36 Dose: 1 patch Magnesium Oxide (Magox 400 Tab*) 400 mg PO DAILY [facility] Last Admin: 03/27/17 09:51 Dose: 400 mg Mometasone Furoate/Formoterol Fumar (Dulera 200/5 Mdi*) 2 puff INH BID [facility] Last Admin: 03/27/17 08:11 Dose: 2 puff Morphine Sulfate (Ms Contin(*)) 15 mg PO TID [facility] Last Admin: 03/27/17 09:48 Dose: 15 mg Omeprazole (Prilosec Cap*) 40 mg PO DAILY [facility] Last Admin: 03/27/17 10:18 Dose: 40 mg Ondansetron HCl (Zofran Inj*) 4 mg IV Q6H PRN PRN Reason: NAUSEA Pharmacy Profile Note (Lidocaine Patch Remove*) 1 note PATCH OFF 2100 [facility] Prednisone (Deltasone Tab*) 60 mg PO DAILY [facility] Last Admin: 03/27/17 09:46 Dose: 60 mg Senna (Senokot Tab*) 2 tab PO BEDTIME [facility] Last Admin: 03/26/17 20:56 Dose: Not Given Vital Signs 03/26/17 03/26/17 03/26/17 18:30 19:29 20:00 Temperature Pulse Rate Respiratory 18 22 20 Rate Blood Pressure (mmHg) O2 Sat by Pulse 100 Oximetry 03/26/17 03/26/17 03/26/17 20:30 20:42 20:55 Temperature 98.0 F 98.0 F Pulse Rate 105 105 Respiratory 22 22 22 Rate Blood Pressure 129/82 129/82 (mmHg) O2 Sat by Pulse 100 100 Oximetry 03/26/17 03/26/17 03/27/17 22:31 23:12 00:52 Temperature 97.5 F Pulse Rate 106 Respiratory 18 17 20 Rate Blood Pressure 105/53 (mmHg) O2 Sat by Pulse 98 100 Oximetry 03/27/17 03/27/17 03/27/17 04:07 04:47 05:32 Temperature Pulse Rate 83 108 Respiratory 16 16 22 Rate Blood Pressure 116/63 (mmHg) O2 Sat by Pulse 99 100 Oximetry 03/27/17 03/27/17 03/27/17 07:19 08:16 08:53 Temperature 97.7 F Pulse Rate 103 91 Respiratory 20 14 18 Rate Blood Pressure 130/62 (mmHg) O2 Sat by Pulse 98 98 Oximetry 03/27/17 03/27/17 03/27/17 09:48 11:41 12:36 Temperature Pulse Rate 100 Respiratory 18 18 18 Rate Blood Pressure (mmHg) O2 Sat by Pulse 96 Oximetry 03/27/17 03/27/17 12:47 12:49 Temperature Pulse Rate Respiratory 18 18 Rate Blood Pressure (mmHg) O2 Sat by Pulse Oximetry Oxygen Devices in Use Now: Nasal Cannula Appearance: thin, NAD Eyes: No Scleral Icterus, PERRLA Ears/Nose/Mouth/Throat: Clear Oropharnyx, Mucous Membranes Moist Neck: NL Appearance and Movements; NL JVP, Trachea Midline Respiratory: Symmetrical Chest Expansion and Respiratory Effort, Clear to Auscultation, - - decreased throughout Cardiovascular: NL Sounds; No Murmurs; No JVD, RRR Abdominal: NL Sounds; No Tenderness; No Distention, No Hepatosplenomegaly Lymphatic: No Cervical Adenopathy Extremities: No Edema Skin: No Rash or Ulcers Neurological: Alert and Oriented x 3 Result Diagrams: 03/27/17 07:56 03/27/17 07:56 Microbiology and Other Data: Microbiology 03/26/17 21:00 Legionella Urinary Antigen - Final Urine Negative Legionella Streptococcus pneumoniae Ag Screen - Final Negative S. pneumo Antigen 03/26/17 21:00 Influenza Types A,B Antigen (BENJAMÍN) - Final Nasal Specimen received for Influenza A/B Molecular testing Assess/Plan/Problems-Billing Assessment: 66 yo M with advanced COPD p/w SOB admitted with suspected PNA and COPD exacerbation - Patient Problems (1) Pneumonia Comment: Suspected PNA. Had subjective fevers at home. CXR suggests PNA CTX and azithromycine (2) Back pain Comment: Chronic problem c/w home medications (3) COPD exacerbation Comment: prednisone 60mg oxygen dulera, spiriva Long discussion concerning suspected progression of disease and palliative care. Patient was already considering seeking pall care consult as outpatient. Additional information to be given if discharged prior to referral (4) DVT prophylaxis Comment: - SQ heparin.
[2017-03-27] MEDS ORDERED: Spiriva Inhaler DEVICE* 1 EACH DEVICE SCH (15:00)
[2017-03-27] MEDS ORDERED: cefTRIAXone VIAL(*) 1,000 MG in NS 0.9% 50 ML* 50 ML IVPB SCH (18:00)
[2017-03-27] MEDS ORDERED: Azithromycin IV(*) 500 MG in NS 0.9% 250 ML* 250 ML IVPB SCH (20:00)
[2017-03-27] MEDS ORDERED: NS 0.9% 500 ML* 500 ML IV ONE ×2 (21:00→23:00)
[2017-03-27] MEDS ORDERED: Lidocaine Patch REMOVE* 1 NOTE MISC PATCH OFF SCH (21:00)
[2017-03-27] MEDS: Senna TAB PO SCH (21:51)
[2017-03-28] MEDS ORDERED: Naloxone* 0.4 MG/ML 1 ML VIAL ONE (00:30)
[2017-03-28] MEDS ORDERED: NS 0.9% 500 ML* 500 ML IV ONE (01:00)
[2017-03-28] MEDS ORDERED: Naloxone* 0.4 MG/ML 1 ML VIAL IV ONE (01:00)
[2017-03-28] MEDS: Acetaminophen TAB* 325 MG PO PRN ×2 (01:14→09:14)
[2017-03-28] MEDS: Albuterol/Ipratropium NEB.SOL* Albuterol 2.5 MG/Ipratropium 0.5 MG 3 ML INH SCH ×3 (04:04→11:06)
[2017-03-28] MEDS: Ibuprofen TAB* 400 MG PO PRN (05:04)
[2017-03-28] MEDS: Lidocaine PATCH 5%* 1 PATCH TRANSDERM PRN (05:04)
[2017-03-28] MEDS: Heparin VIAL(*) 5000 UNITS/ML VIAL (FIVE THOUSAND) SUBCUT SCH ×2 (05:04→05:31)
[2017-03-28] MEDS: Mometasone/Formoter 200/5 MDI INH SCH (08:36)
[2017-03-28] MEDS ORDERED: Tiotropium CAP.INH* CAP.INH/18 MCG (USE ORDER SET !) INH SCH (09:00)
[2017-03-28] MEDS: predniSONE TAB* 20 MG PO SCH (09:14)
[2017-03-28] MEDS: Magnesium Oxide TAB* 400 MG PO SCH (09:14)
[2017-03-28] MEDS: Omeprazole CAP* 20 MG PO SCH (09:14)
[2017-03-28] MEDS: Morphine TAB Extended Release (*) 15 MG TAB.ER PO SCH (09:15)
[2017-03-28] MEDS: Gabapentin CAP(*) 300 MG PO SCH (09:21)
[2017-03-28] MEDS: HYDROmorphone TAB* 2 MG PO PRN (10:52)
[2017-03-28 11:56] VITALS: BP 101/66
--- NOTE | 2017-03-29 03:10 | DS ---
CC: Jonathan Alfaro NP; Palliative and Hospice Care Services * DISCHARGE SUMMARY: DATE OF ADMISSION: 03/26/17 DATE OF DISCHARGE: 03/27/17 PRIMARY CARE PROVIDER: Jonathan Alfaro NP. PRIMARY DIAGNOSES: 1. Chronic obstructive pulmonary disease exacerbation. 2. Pneumonia suspected. SECONDARY DIAGNOSES: Include: 1. Chronic lumbar pain, advanced. 2. 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 MEDICATIONS ON DISCHARGE: Unchanged from admission except for the addition of: 1. Levaquin 750 mg daily for 6 additional days. 2. Steroid taper. 3. Prednisone 60 mg for 4 days; 40 mg for 4 days; 20 mg for 4 days; and resume 5 mg daily. Other medications include: 1. Morphine extended release 15 mg 3 times daily. 2. Senna/docusate 6 tabs daily. 3. Ibuprofen 400 mg 4 times a day as needed. 4. Prednisone 5 mg daily after steroid taper. 5. Spiriva 1 cap inhaled daily. 6. Symbicort 160/4.5 two puffs twice daily. 7. Albuterol HFA 1 puff every 4 hours as needed for shortness of breath. 8. DuoNeb every 6 hours as needed for shortness of breath or wheeze. 9. Clonazepam 0.5 mg twice daily and 1 mg in the evening. 10. Omeprazole 40 mg daily. 11. Hydromorphone tab 2 mg every 4 hours as needed for pain. 12. Gabapentin 600 mg 3 times a day. HISTORY OF PRESENT ILLNESS AND HOSPITAL COURSE: This is a 66-year-old man with advanced COPD, requiring home oxygen 3 L at all times as well as chronic steroids, with exertion limited to ambulating to the bathroom, limited by chronic lower back pain as well as shortness of breath. His chronic lower back pain has been evaluated with multiple etiologies and he has had little relief except with some symptomatic relief with high dose narcotics noted above. The patient has been losing weight steadily over the last year and we had long discussion together in conjunction with his healthcare proxy/friend about pursuing palliative and/or hospice care services. After thinking it over the evening, the patient is interested in pursuing hospice services upon discharge, pursuing a quality of life over continued therapy. Referral was made to the hospice services via his discharge summary, a number was given as well as an email was sent to Katherine Maki, our social media project manager in the hospital, to help connect the patient and services should he fail. The patient is discharged on a steroid taper for COPD exacerbation. While the chest x-ray was notable for potential pneumonia, I think is less likely; however, we will continue levofloxacin for a total of 7 days for both COPD exacerbation and potential pneumonia. There were no complications during this patient hospital stay. The patient feels breathing is back to his baseline at the time of discharge. At followup, please; 1. Please ensure adequate resumption of home steroid and extend taper if necessary based on respiratory symptoms. 2. Please ensure followup with palliative and/or hospice care services upon discharge. 3. No other specific labs or vitals that need followup. Reasons to return to the hospital included, but not limited to recurrent or worsening symptoms, difficulty breathing, chest pain, lightheadedness, loss of consciousness, near loss of consciousness, inability to obtain or tolerating medications or unacceptable symptoms at home. Discussed with the patient and his healthcare proxy, they acknowledge understanding. Greater than 60 minutes was spent on the discharge of this patient, greater than half was spent [id number] with the patient. [id number]/[facility] #: [id number] ADELA
== END 2017-03-28 13:40 | disposition hospice, home (50) | DRG 190 ==
LOC: ED 13:48 → MED 18:20
PROVIDERS: ADMIT Internal Medicine; ATTEND Internal Medicine
DX: J44.1 Chronic obstructive pulmonary disease with (acute) exacerbation (principal); J18.9 Pneumonia, unspecified organism; Z99.81 Dependence on supplemental oxygen; M54.5 Low back pain; Z79.1 Long term (current) use of non-steroidal anti-inflammatories (NSAID); Z79.899 Other long term (current) drug therapy; Z82.49 Family history of ischemic heart disease and other diseases of the circulatory system; Z82.5 Family history of asthma and other chronic lower respiratory diseases; Z83.3 Family history of diabetes mellitus; Z87.891 Personal history of nicotine dependence
CPT/HCPCS: 36415; 71010; 80048; 80053; 81003; 82565; 82728; 83540; 83550; 83605; 83735; 84520; 85025; 85610; 85730; 87040; 87086; 87502; 87899; 94640; 94760; A9270-GY; J0456; J0696; J1644; J2270; J2310; J2930; J7512